=== PATIENT | male | born 1980 | race Caucasian/White ===

== ENCOUNTER 2016-07-13 17:03 | Emergency (ER) | payer BC ==
[~2016-07-13] VITALS: Ht 182.9 cm; Wt 83.9 kg
[~2016-07-13 17:03] MED LIST: OMEP20CA5; ONDA4TAB10 SL; OXYC-323 PO; TAMS0.4C97 PO
[2016-07-13] MEDS ORDERED: IV NORMAL SALINE 1000ML BAG 1,000 ML IV SCH (18:36)
[2016-07-13] MEDS ORDERED: ONDANSETRON PF 4 MG/2 ML VIAL. ONE (18:40)
[2016-07-13] MEDS ORDERED: HYDROMORPHONE 2 MG/ML VIAL. ONE (18:40)
[2016-07-13] MEDS ORDERED: ONDANSETRON PF 4 MG/2 ML VIAL. IV ONE (18:45)
[2016-07-13] MEDS ORDERED: HYDROMORPHONE 2 MG/ML VIAL. IV/SQ PRN (18:45)
[2016-07-13 18:50] LABS: BILIRUBIN,URINE NEGATIVE (NEG); GLUCOSE,URINE NEGATIVE (NEG); NITRITE,URINE NEGATIVE (NEG); PROTEIN,URINE NEGATIVE (NEG-TRACE); UROBILINOGEN,URINE 0.2 mg/dL (0.2 mg/dL)
[2016-07-13 18:52] LABS: BASO % 0 % (0-3); EOS % 4 % (0-3); HEMATOCRIT 48.3 % (39.0-53.0); HEMOGLOBIN 15.9 g/dL (13.0-17.5); LYMPH # 0.6 x10^3/uL (1.0-4.8); LYMPH % 6 % (24-48); MEAN CORPUSCULAR HEMOGLOBIN 29 pg (25-35); MEAN CORPUSCULAR HGB CONC 33 g/dL (31-37); MEAN CORPUSCULAR VOLUME 89 fL (79-100); MONO % 5 % (0-9); NEUT % 86 % (31-73); PLATELET COUNT 185 x10^3/uL (140-400); RED BLOOD COUNT 5.44 x10^6/uL (4.30-5.70); RED CELL DISTRIBUTION WIDTH 14.1 % (11.5-14.5)
[2016-07-13 19:00] LABS: CALCIUM 9.2 mg/dL (8.5-10.1); CREATININE 1.1 mg/dL (0.7-1.3); GFR 75.3; POTASSIUM 4.1 mmol/L (3.5-5.1)
[2016-07-13 19:06] LABS: ALBUMIN 4.1 g/dL (3.4-5.0); TOTAL BILIRUBIN 0.5 mg/dL (0.2-1.0); TOTAL PROTEIN 8.1 g/dL (6.4-8.2)
[2016-07-13 19:07] LABS: BACTERIA,URINE 0 /HPF (0-FEW); RBC,URINE 0 /HPF (0-2); WBC,URINE 0 /HPF (0-4)
--- NOTE | 2016-07-13 19:14 | RAD ---
PROCEDURE CT abdomen and pelvis without intravenous contrast. HISTORY Severe right flank pain beginning today. History of renal stones. TECHNIQUE Helical CT of the abdomen and pelvis was performed without intravenous or oral contrast. Exposure: One or more of the following individualized dose reduction techniques were utilized for this examination: 1. Automated exposure control. 2. Adjustment of the mA and/or kV according to patient size. 3. Use of iterative reconstruction technique. COMPARISON None available. FINDINGS Evaluation of solid organs is limited by lack of intravenous contrast. Evaluation of enteric structures may be limited by lack of oral contrast. Mild fatty liver disease is seen. Spleen, pancreas, gallbladder, and bilateral adrenal glands are unremarkable. No bowel obstruction or inflammation is seen. Appendix is without evidence of inflammation. Urinary bladder is unremarkable. No free air or free fluid is seen in the abdomen or pelvis. Bilateral ureters are free of stone or obstruction. Superior pole of the right kidney demonstrates 3 millimeter nonobstructive nephrolith. The left kidney demonstrates presence of 4 nonobstructive nephroliths ranging in size from 1 millimeter to 5 millimeters. IMPRESSION 1. No acute abnormality identified in the abdomen or pelvis. 2. Bilateral nonobstructive nephrolithiasis. Electronically signed by: Davi Harding MD (Jul 13, 2016 19:12:15)
[2016-07-13 19:47] LABS: % EOS 2 % (0-5)
[2016-07-13 19:48] LABS: PLT ESTIMATE ADEQUATE (ADEQUATE)
[2016-07-13 20:09] VITALS: BP 131/86
[2016-07-13] MEDS ORDERED: NAPR250T2 PO (20:15)
[2016-07-13] MEDS ORDERED: ONDA4TAB7 PO (20:15)
[2016-07-13] MEDS ORDERED: CYCL10TA2 PO (20:15)
--- NOTE | 2016-07-13 22:08 | ED.ADGEN ---
Past Medical History Past Medical History: GERD, Kidney Stone Additional Past Medical Histor: kidney stones Past Surgical History: Other Additional Past Surgical Histo: Hydrocele, left knee, belly button surgery Alcohol Use: Occasionally Drug Use: None Adult General Chief Complaint Chief Complaint: FLANK PAIN HPI HPI Patient is a 35 year old man, history of renal calculi with renal colic was previously required lithotripsy, GERD, who presents emergency Department with complaint of right flank pain that began yesterday, associated with nausea, vomiting and diarrhea. Patient states the symptoms she is experiencing currently are consistent with previous episodes of renal calculi. He states the pain has migrated somewhat lower down on his back but remains in the flank region. He denies any injuries, states he experienced subjective fevers at home , no chills. Several episodes of vomiting today, food and fluid, and several episodes of diarrhea, soft brown stool no blood. No sick contacts or exposures. Patient states that he has not experienced any dysuria, frequency, urgency or hematuria. He has not taken any medication prior to come to the ED. His urologist is Dr. Angel. Review of Systems Review of Systems Constitutional: Denies fever or chills. [] Eyes: Denies change in visual acuity. [] HENT: Denies nasal congestion or sore throat. [] Respiratory: Denies cough or shortness of breath. [] Cardiovascular: Denies chest pain or edema. [] GI: Right flank pain, nausea, vomiting, diarrhea, no bloody stools. : Denies dysuria. [] Musculoskeletal: Denies back pain or joint pain. [] Integument: Denies rash. [] Neurologic: Denies headache, focal weakness or sensory changes. [] Endocrine: Denies polyuria or polydipsia. [] Lymphatic: Denies swollen glands. [] Psychiatric: Denies depression or anxiety. [] Current Medications Current Medications Current Medications Medications (Trade) Dose Ordered Sig/Anay Start Time Stop Time Status Last Admin Dose Admin Hydromorphone HCl (Dilaudid) 2 mg STK-MED ONCE 07/13/16 18:40 07/13/16 18:41 DC Hydromorphone HCl 0.5 mg 0.5 mg PRN Q15MIN PRN 07/13/16 18:45 07/13/16 20:31 DC 07/13/16 18:44 0.5 MG Ondansetron HCl (Zofran) 4 mg STK-MED ONCE 07/13/16 18:40 07/13/16 18:41 DC Sodium Chloride (Iv Sodium Chloride 0.9% 1000ml Bag) 1,000 ml @ 1,000 mls/hr Q1H 07/13/16 18:36 07/13/16 19:35 DC 07/13/16 18:45 1,000 MLS/HR Allergies Allergies Allergies Coded Allergies Type Severity Reaction Last Updated Verified pseudoephedrine Allergy Unknown 04/10/13 Yes Physical Exam Physical Exam Constitutional: Well developed, well nourished, acute distress, secondary to pain, nausea, slightly diaphoretic. [] HENT: Normocephalic, atraumatic, bilateral external ears normal, oropharynx moist, no oral exudates, nose normal. [] Eyes: PERRLA, EOMI, conjunctiva normal, no discharge. [] Neck: Normal range of motion, no tenderness, supple, no stridor. [] Cardiovascular:Heart rate regular rhythm, no murmur, S1, S2, no rubs or gallops. Mildly tachycardic. [] Lungs & Thorax: Bilateral breath sounds clear to auscultation , no wheezing, rhonchi, rales. No chest tenderness or crepitus. [] Abdomen: Bowel sounds normal, soft, no tenderness, no rebound, rigidity, no guarding, no masses, no pulsatile masses. [] Skin: Warm, dry, no erythema, no rash. [] Back: Patient with right-sided CVA tenderness, no midline or paraspinal tenderness. Extremities: No tenderness, no cyanosis, no clubbing, ROM intact, no edema. [] Neurologic: Alert and oriented X 3, normal motor function, normal sensory function, no focal deficits noted. [] Psychologic: Affect normal, judgement normal, mood normal. [] Current Patient Data Vital Signs Vital Signs Date Time Temp Pulse Resp B/P Pulse Ox O2 Delivery O2 Flow Rate FiO2 07/13/16 20:09 80 18 131/86 97 Room Air 07/13/16 17:14 98.1 98.1 Lab Values Laboratory Tests Test 07/13/16 17:22 White Blood Count 10.0x10^3/uL (4.0-11.0) Red Blood Count 5.44x10^6/uL (4.30-5.70) Hemoglobin 15.9g/dL (13.0-17.5) Hematocrit 48.3% (39.0-53.0) Mean Corpuscular Volume 89fL (79-100) Mean Corpuscular Hemoglobin 29pg (25-35) Mean Corpuscular Hemoglobin Concent 33g/dL (31-37) Red Cell Distribution Width 14.1% (11.5-14.5) Platelet Count 185x10^3/uL (140-400) Neutrophils (%) (Auto) 86% (31-73) H Lymphocytes (%) (Auto) 6% (24-48) L Monocytes (%) (Auto) 5% (0-9) Eosinophils (%) (Auto) 4% (0-3) H Basophils (%) (Auto) 0% (0-3) Neutrophils # (Auto) 8.5x10^3uL (1.8-7.7) H Lymphocytes # (Auto) 0.6x10^3/uL (1.0-4.8) L Monocytes # (Auto) 0.5x10^3/uL (0.0-1.1) Eosinophils # (Auto) 0.4x10^3/uL (0.0-0.7) Basophils # (Auto) 0.0x10^3/uL (0.0-0.2) Segmented Neutrophils % 74% (35-66) H Band Neutrophils % 9% (0-9) Lymphocytes % 7% (24-48) L Atypical Lymphocytes % (Manual) 2% (0-0) H Monocytes % 6% (0-10) Eosinophils % 2% (0-5) Platelet Estimate Adequate (ADEQUATE) Urine Collection Type Unknown Urine Color Yellow Urine Clarity Clear Urine pH 5.0 Urine Specific [place] 1.020 Urine Protein Negativemg/dL (NEG-TRACE) Urine Glucose (UA) Negativemg/dL (NEG) Urine Ketones (Stick) Tracemg/dL (NEG) Urine Blood Negative (NEG) Urine Nitrite Negative (NEG) Urine Bilirubin Negative (NEG) Urine Urobilinogen Dipstick 0.2mg/dL (0.2 mg/dL) Urine Leukocyte Esterase Negative (NEG) Urine RBC 0/HPF (0-2) Urine WBC 0/HPF (0-4) Urine Bacteria 0/HPF (0-FEW) Urine Mucus Mod/LPF Sodium Level 142mmol/L (136-145) Potassium Level 4.1mmol/L (3.5-5.1) Chloride Level 104mmol/L (98-107) Carbon Dioxide Level 25mmol/L (21-32) Anion Gap 13 (6-14) Blood Urea Nitrogen 16mg/dL (8-26) Creatinine 1.1mg/dL (0.7-1.3) Estimated GFR (Cockcroft-Gault) 75.3 BUN/Creatinine Ratio 15 (6-20) Glucose Level 88mg/dL (70-99) Calcium Level 9.2mg/dL (8.5-10.1) Total Bilirubin 0.5mg/dL (0.2-1.0) Aspartate Amino Transferase (AST) 15U/L (15-37) Alanine Aminotransferase (ALT) 26U/L (16-63) Alkaline Phosphatase 99U/L (46-116) Total Protein 8.1g/dL (6.4-8.2) Albumin 4.1g/dL (3.4-5.0) Albumin/Globulin Ratio 1.0 (1.0-1.7) Laboratory Tests 07/13/16 17:22 Laboratory Tests 07/13/16 17:22 EKG EKG ECG: Rhythm strip: Sinus rhythm, heart rate 88 beats minute, no ectopy. As interpreted by me. Radiology/Procedures Radiology/Procedures [] [facility] [address] [place], [place] [id number] IMAGING REPORT Signed PATIENT: DAVI BRONSON ACCOUNT: [id number] : 1980 LOCATION: ER AGE: 35 SEX: M EXAM STATUS: REG ER ORD. PHYSICIAN: OZZY BORDEN DO REASON: R flank pain/n/v/hx of renal calculi PROCEDURE: ABDOMEN PELVIS WO CONTRAST PROCEDURE CT abdomen and pelvis without intravenous contrast. HISTORY Severe right flank pain beginning today. History of renal stones. TECHNIQUE Helical CT of the abdomen and pelvis was performed without intravenous or oral contrast. Exposure: One or more of the following individualized dose reduction techniques were utilized for this examination: 1. Automated exposure control. 2. Adjustment of the mA and/or kV according to patient size. 3. Use of iterative reconstruction technique. COMPARISON None available. FINDINGS Evaluation of solid organs is limited by lack of intravenous contrast. Evaluation of enteric structures may be limited by lack of oral contrast. Mild fatty liver disease is seen. Spleen, pancreas, gallbladder, and bilateral adrenal glands are unremarkable. No bowel obstruction or inflammation is seen. Appendix is without evidence of inflammation. Urinary bladder is unremarkable. No free air or free fluid is seen in the abdomen or pelvis. Bilateral ureters are free of stone or obstruction. Superior pole of the right kidney demonstrates 3 millimeter nonobstructive nephrolith. The left kidney demonstrates presence of 4 nonobstructive nephroliths ranging in size from 1 millimeter to 5 millimeters. IMPRESSION 1. No acute abnormality identified in the abdomen or pelvis. 2. Bilateral nonobstructive nephrolithiasis. Electronically signed by: Davi Miranda MD (Jul 13, 2016 19:12:15) DICTATED and SIGNED BY: DAVI MIRANDA MD DATE: 07/13/161911 CC: OZZY BORDEN DO; JR MICHEL MD ~ Course & Med Decision Making Course & Med Decision Making Pertinent Labs and Imaging studies reviewed. (See chart for details) Patient's history and examination concerning for recurrent renal calculi. Patient patient's report of a previously visualized stone 6 mm which she does not believe he has a past, and complicated course which he required previously to resolve his stones, CT of abdomen and pelvis obtained after discussion with patient at bedside regarding resources benefit of radiation and diagnostic evaluation with CT. Patient received IV fluids, antiemetics, pain medication in the ED with resolution of his vomiting. No further diarrhea. CT of abdomen and pelvis did not reveal any evidence of concerning findings, no hydroureter, no hydronephrosis, urinalysis was negative, laboratory studies revealed no leukocytosis, but some bands were identified, left shift. Lites are likely all within normal limits as was renal function. I did reevaluate the patient, who is now resting much more comfortably, reviewed the patient that he may be experiencing residual symptoms after passing a stone versus another etiology such as a viral illness. At this time the patient is tolerating by mouth fluids , and has no evidence of acutely concerning process on his CT or laboratory findings, patient is agreeable with plan to be discharged home, to use oral medications as needed, and to follow-up with Dr. Angel with whom he has an appointment tomorrow. We discussed concerning symptoms that would prompt return to the emergency department, patient and at bedside voiced understanding and agreement. Patient discharged home in stable condition with prescriptions for cycled endocrine, naproxen, and Zofran, with medication precautions and return instructions as stated. Dragon Disclaimer Dragon Disclaimer This electronic medical record was generated, in whole or in part, using a voice recognition dictation system. Departure Impression: Primary Impression: Flank pain Disposition: HOME, SELF-CARE Condition: IMPROVED Scripts Ondansetron Hcl (Zofran)4 Mg Tablet1 Tab PO PRN Q6-8HRS PRN NAUSEA #12 TAB Prov:OZZY BORDEN DO 07/13/16 Cyclobenzaprine Hcl 10 Mg [id number] Mg PO TID PRN PAIN #12 TAB Prov:OZZY BORDEN DO 07/13/16 Naproxen 250 Mg [id number] Mg PO BID PRN PAIN #10 Prov:OZZY BORDEN DO 07/13/16 OZZY BORDEN DO Jul 13, 2016 22:08
== END 2016-07-13 20:25 | disposition home or self-care (01) ==
LOC: ER 17:03
DX: R10.9 Unspecified abdominal pain (principal); K21.9 Gastro-esophageal reflux disease without esophagitis; Z88.8 Allergy status to other drugs, medicaments and biological substances
CPT/HCPCS: 36415; 74176; 80053; 81001; 85007; 85027; 96361; 96374; 96375; 99285; J1170; J2405; J7030

== ENCOUNTER → 2016-08-03 | Outpatient (CLI) | payer BC ==
[2016-07-13 20:09] VITALS: BP 131/86
[~2016-08-03] MED LIST changes: +CYCL10TA2 PO; +NAPR250T2 PO; +ONDA4TAB7 PO
--- NOTE | 2016-08-04 08:50 | RAD ---
Abdomen radiograph History: Renal stones. Comparison: 10/20/2015. Findings: AP view of the abdomen. Superior pole of right kidney was not included on the examination. The inferior pole of left kidney demonstrates presence of 2 calcifications measuring 4 and 2 mm, compatible with nephrolithiasis. This can be seen on previous study. There may be a 3 mm calcification involving the interpolar region of the right kidney. No convincing calcification is seen along the expected course of either ureter. There is a small calcification involving left hemipelvis which is unchanged involves the prostate. Impression: Bilateral nephrolithiasis.
== END | disposition home or self-care (01) ==
LOC: RAD 14:41
PROVIDERS: ATTEND Nurse Practitioner Occupational Health
DX: N20.0 Calculus of kidney (principal)
CPT/HCPCS: 74000

== ENCOUNTER → 2016-08-04 | Outpatient (CLI) | payer BC ==
[2016-07-13 20:09] VITALS: BP 131/86
== END | disposition home or self-care (01) ==
LOC: LAB 14:35
PROVIDERS: ATTEND Nurse Practitioner Occupational Health
DX: Z12.5 Encounter for screening for malignant neoplasm of prostate (principal); N40.0 Benign prostatic hyperplasia without lower urinary tract symptoms; N20.0 Calculus of kidney
CPT/HCPCS: 36415; G0103

== ENCOUNTER → 2016-09-28 | Outpatient (CLI) | payer BC ==
--- NOTE | 2016-09-28 15:44 | RAD ---
Abdominal ultrasound - limited to the kidneys Indication: BPH, kidney stones, lower urinary tract symptoms. Comparison: CT abdomen pelvis 07/13/2016. Procedure: Transabdominal ultrasound images are obtained of the kidneys and bladder. Findings: Right kidney measures 10.9 cm in length. Parenchymal echogenicity of the right kidney appears appropriate. No hydronephrosis is seen. No convincing right nephrolith is seen. Left kidney measures 10.9 cm in length. Parenchymal echogenicity of the left kidney appears appropriate. No hydronephrosis is seen. There may be small nonobstructive nephroliths involving the inferior left kidney. Urinary bladder has unremarkable appearance. Impression: 1. No evidence of renal obstruction. 2. There may be nonobstructive left nephroliths.
== END | disposition home or self-care (01) ==
LOC: US 14:10
PROVIDERS: ATTEND Nurse Practitioner Occupational Health
DX: N20.0 Calculus of kidney (principal); N40.1 Benign prostatic hyperplasia with lower urinary tract symptoms
CPT/HCPCS: 76770

== ENCOUNTER 2018-02-27 07:38 | Emergency (ER) | payer BC ==
[~2018-02-27] VITALS: Ht 182.9 cm; Wt 90.7 kg
[~2018-02-27 07:38] MED LIST changes: -NAPR250T2 PO; +NAPR250T6 PO
[2018-02-27 07:47] VITALS: BP 151/108
--- NOTE | 2018-02-27 07:56 | PHYS DOC ---
Past Medical History Past Medical History: GERD, Kidney Stone Additional Past Medical Histor: kidney stones Past Surgical History: Other Additional Past Surgical Histo: Hydrocele, left knee, belly button surgery Alcohol Use: Occasionally Drug Use: None Adult General Chief Complaint Chief Complaint: CHEST PAIN [facility] Patient is a 37 year old female who presents with chest pain right side of the chest hurts to cough hurts to move he said when he tried to put the leash on his dog this morning when he bent over and move the shoulder around her his pectoralis area and radiated to his scapula. Currently at rest the pain is minimal or absent. It is not really worse when he walks just when he moves in a certain position. It is sharp no fever no history of blood clot no hemoptysis no leg swelling Review of Systems Review of Systems Constitutional: Denies fever or chills [] Eyes: Denies change in visual acuity, redness, or eye pain [] HENT: Denies nasal congestion or sore throat [] Respiratory: Denies r shortness of breath [] Cardiovascular: No additional information not addressed in HPI [] GI: Denies abdominal pain, nausea, vomiting, bloody stools or diarrhea [] All other systems were reviewed and found to be within normal limits, except as documented in this note. Allergies Allergies Allergies Coded Allergies Type Severity Reaction Last Updated Verified pseudoephedrine Allergy Unknown 04/10/13 Yes Physical Exam Physical Exam Constitutional: Well developed, well nourished, no acute distress, non-toxic appearance. [] HENT: Normocephalic, atraumatic, bilateral external ears normal, oropharynx moist, no oral exudates, nose normal. [] Eyes: PERRLA, EOMI, conjunctiva normal, no discharge. [] Neck: Normal range of motion, no tenderness, supple, no stridor. [] Cardiovascular:Heart rate regular rhythm, no murmur [] Lungs & Thorax: Bilateral breath sounds clear to auscultation []there is reproducible chest wall tenderness on the right Abdomen: Bowel sounds normal, soft, no tenderness, no masses, no pulsatile masses. [] Skin: Warm, dry, no erythema, no rash. [] Back: No tenderness, no CVA tenderness. [] Extremities: No tenderness, no cyanosis, no clubbing, ROM intact, no edema. [] Neurologic: Alert and oriented X 3, normal motor function, normal sensory function, no focal deficits noted. [] Psychologic: Affect normal, judgement normal, mood normal. [] Current Patient Data Vital Signs Vital Signs Date Time Temp Pulse Resp B/P (MAP) Pulse Ox O2 Delivery O2 Flow Rate FiO2 02/27/18 07:47 97.9 72 18 151/108 (122) 93 Room Air 97.9 Lab Values Laboratory Tests Test 02/27/18 07:59 White Blood Count 9.0 x10^3/uL (4.0-11.0) Red Blood Count 5.14 x10^6/uL (4.30-5.70) Hemoglobin 15.5 g/dL (13.0-17.5) Hematocrit 44.7 % (39.0-53.0) Mean Corpuscular Volume 87 fL (79-100) Mean Corpuscular Hemoglobin 30 pg (25-35) Mean Corpuscular Hemoglobin Concent 35 g/dL (31-37) Red Cell Distribution Width 13.8 % (11.5-14.5) Platelet Count 199 x10^3/uL (140-400) Neutrophils (%) (Auto) 63 % (31-73) Lymphocytes (%) (Auto) 20 % (24-48) L Monocytes (%) (Auto) 7 % (0-9) Eosinophils (%) (Auto) 8 % (0-3) H Basophils (%) (Auto) 1 % (0-3) Neutrophils # (Auto) 5.7 x10^3uL (1.8-7.7) Lymphocytes # (Auto) 1.8 x10^3/uL (1.0-4.8) Monocytes # (Auto) 0.7 x10^3/uL (0.0-1.1) Eosinophils # (Auto) 0.7 x10^3/uL (0.0-0.7) Basophils # (Auto) 0.1 x10^3/uL (0.0-0.2) Sodium Level 141 mmol/L (136-145) Potassium Level 4.2 mmol/L (3.5-5.1) Chloride Level 106 mmol/L (98-107) Carbon Dioxide Level 22 mmol/L (21-32) Anion Gap 13 (6-14) Blood Urea Nitrogen 10 mg/dL (8-26) Creatinine 1.1 mg/dL (0.7-1.3) Estimated GFR (Cockcroft-Gault) 74.5 BUN/Creatinine Ratio 9 (6-20) Glucose Level 102 mg/dL (70-99) H Calcium Level 9.0 mg/dL (8.5-10.1) Total Bilirubin 0.3 mg/dL (0.2-1.0) Aspartate Amino Transferase (AST) 15 U/L (15-37) Alanine Aminotransferase (ALT) 25 U/L (16-63) Alkaline Phosphatase 104 U/L (46-116) Troponin I Quantitative < 0.017 ng/mL (0.000-0.055) Total Protein 7.5 g/dL (6.4-8.2) Albumin 3.8 g/dL (3.4-5.0) Albumin/Globulin Ratio 1.0 (1.0-1.7) Laboratory Tests 02/27/18 07:59 Laboratory Tests 02/27/18 07:59 EKG EKG []EKG shows normal sinus rhythm rate of 67 no acute ischemic changes noted this is a normal-appearing EKG intervals are normal interpreted by me the time of encounter Radiology/Procedures Radiology/Procedures [] Impressions: CXR NEG Course & Med Decision Making Course & Med Decision Making Pertinent Labs and Imaging studies reviewed. (See chart for details) []perc score is negative. heart h 0 e 0 a 0 r 1 (possibly) t 0. After 5 hours of sharp reproducible chest wall pain no more EKG negative troponin very low suspicion for acute coronary syndrome I think the patient can be managed safely as an outpatient recommended follow-up with primary care doctor should symptoms persist also recommended follow-up in 1 month to check blood pressure as well. The story does not sound like a dissection at all. REASSURANCE PROVIDED, RETURN PRECAUTIONS DISCUSSED IN EXPLICIT DETAIL. Dragon Disclaimer Dragon Disclaimer This electronic medical record was generated, in whole or in part, using a voice recognition dictation system. Departure Departure Impression: Primary Impression: Chest pain Disposition: HOME, SELF-CARE Condition: STABLE Referrals: JR MICHEL MD (PCP) JOHANA CALDWELL MD Feb 27, 2018 07:56
[2018-02-27 08:25] LABS: BASO # 0.1 x10^3/uL (0.0-0.2); BASO % 1 % (0-3); EOS # 0.7 x10^3/uL (0.0-0.7); EOS % 8 % (0-3); HEMATOCRIT 44.7 % (39.0-53.0); HEMOGLOBIN 15.5 g/dL (13.0-17.5); LYMPH # 1.8 x10^3/uL (1.0-4.8); LYMPH % 20 % (24-48); MEAN CORPUSCULAR HEMOGLOBIN 30 pg (25-35); MEAN CORPUSCULAR HGB CONC 35 g/dL (31-37); MEAN CORPUSCULAR VOLUME 87 fL (79-100); MONO # 0.7 x10^3/uL (0.0-1.1); MONO % 7 % (0-9); NEUT # 5.7 x10^3uL (1.8-7.7); NEUT % 63 % (31-73); PLATELET COUNT 199 x10^3/uL (140-400); RED BLOOD COUNT 5.14 x10^6/uL (4.30-5.70); RED CELL DISTRIBUTION WIDTH 13.8 % (11.5-14.5)
[2018-02-27 08:30] LABS: CREATININE 1.1 mg/dL (0.7-1.3); GFR 74.5; POTASSIUM 4.2 mmol/L (3.5-5.1)
[2018-02-27 08:36] LABS: ALBUMIN 3.8 g/dL (3.4-5.0); TOTAL BILIRUBIN 0.3 mg/dL (0.2-1.0); TOTAL PROTEIN 7.5 g/dL (6.4-8.2)
--- NOTE | 2018-02-27 08:37 | RAD ---
Exam: AP portable chest History: Right chest pain. Comparison: April 10, 2013. Findings: The heart and mediastinal structures are within normal limits for size. Lungs are without infiltrate. No pleural effusion or pneumothorax is identified. Impression: 1. No acute cardiopulmonary process. Electronically signed by: Davi Harding MD (02/27/2018 8:34 AM) [facility]
--- NOTE | 2018-02-28 09:00 | EKG ---
[facility] [address] [place] [address] Test Date: 2018-02-27 Test Time: 07:42:22 Pat Name: PHILLIP BRONSON Department: Room: Gender: M Sander Machine: : 1980 Requested By: JOHANA CALDWELL Order Number: [id number] Reading MD: Gen Gale MD Measurements Intervals [place] Rate: 67 P: 12 MD: 152 QRS: -17 QRSD: 94 T: 29 QT: 364 QTc: 387 Interpretive Statements SINUS RHYTHM Electronically Signed On 03-02-2018 11:46:33 CDT by Gen Gale MD
== END 2018-02-27 09:15 | disposition home or self-care (01) ==
LOC: ER 07:38
DX: R07.89 Other chest pain (principal); R05 Cough; K21.9 Gastro-esophageal reflux disease without esophagitis; Z87.442 Personal history of urinary calculi; Z88.8 Allergy status to other drugs, medicaments and biological substances
CPT/HCPCS: 36415; 71045; 80053; 84484; 85025; 93005; 99285-25

== ENCOUNTER 2018-04-02 18:57 | Inpatient (IN) | payer BC ==
[~2018-04-02] VITALS: Ht 182.9 cm; Wt 90.7 kg
[~2018-04-02 18:57] MED LIST changes: -OXYC-323 PO; +OXYC1TAB15 PO
[2018-04-02] MEDS ORDERED: fentaNYL PF VIAL 100 MCG/2 ML VIAL IV ONE ×2 (19:15→20:15)
[2018-04-02] MEDS ORDERED: IV NORMAL SALINE 1000ML BAG 1,000 ML IV ONE (19:15)
[2018-04-02] MEDS ORDERED: ONDANSETRON PF 4 MG/2 ML VIAL. IV ONE (19:15)
[2018-04-02 19:18] LABS: BILIRUBIN,URINE NEGATIVE (NEG); CLARITY,URINE CLOUDY; COLOR,URINE RED; NITRITE,URINE NEGATIVE (NEG); PH,URINE 5.5; PROTEIN,URINE 100 mg/dL (NEG-TRACE); UROBILINOGEN,URINE 0.2 mg/dL (0.2 mg/dL)
[2018-04-02 19:19] LABS: BASO # 0.1 x10^3/uL (0.0-0.2); BASO % 1 % (0-3); EOS # 0.7 x10^3/uL (0.0-0.7); EOS % 8 % (0-3); HEMATOCRIT 44.3 % (39.0-53.0); HEMOGLOBIN 15.3 g/dL (13.0-17.5); LYMPH % 21 % (24-48); MEAN CORPUSCULAR HEMOGLOBIN 30 pg (25-35); MEAN CORPUSCULAR HGB CONC 35 g/dL (31-37); MEAN CORPUSCULAR VOLUME 87 fL (79-100); MONO # 0.9 x10^3/uL (0.0-1.1); MONO % 10 % (0-9); NEUT # 5.8 x10^3uL (1.8-7.7); NEUT % 60 % (31-73); PLATELET COUNT 246 x10^3/uL (140-400); RED BLOOD COUNT 5.08 x10^6/uL (4.30-5.70); RED CELL DISTRIBUTION WIDTH 13.9 % (11.5-14.5); WHITE BLOOD COUNT 9.5 x10^3/uL (4.0-11.0)
[2018-04-02 19:25] LABS: CALCIUM 9.2 mg/dL (8.5-10.1); CREATININE 1.6 mg/dL (0.7-1.3); GFR 48.4; POTASSIUM 4.1 mmol/L (3.5-5.1)
[2018-04-02 19:27] LABS: AMORPHOUS SEDIMENT,UR PRESENT /HPF; BACTERIA,URINE 0 /HPF (0-FEW); RBC,URINE TNTC /HPF (0-2)
[2018-04-02 19:31] LABS: ALBUMIN 3.7 g/dL (3.4-5.0); ALBUMIN/GLOBULIN RATIO 0.9 (1.0-1.7); TOTAL BILIRUBIN 0.1 mg/dL (0.2-1.0); TOTAL PROTEIN 7.9 g/dL (6.4-8.2)
--- NOTE | 2018-04-02 19:44 | RAD ---
CT abdomen and pelvis without contrast 04/02/2018. Reason for exam: Left flank pain. History of kidney stones. Helical noncontrast images were obtained through the abdomen and pelvis. Exposure: One or more of the following individualized dose reduction techniques were utilized for this examination: 1. Automated exposure control 2. Adjustment of the mA and/or kV according to patient size 3. Use of iterative reconstruction technique. Comparison is made with a prior study of 07/13/2016. FINDINGS: The lung bases are clear. The liver and spleen are homogeneous in density and normal in configuration. The kidneys show no apparent mass. Small calculi are seen on each side. There is mild left-sided hydronephrosis and hydroureter. This is secondary to stones in both the proximal and distal ureter. The proximal ureteral stone measures about 6 mm transversely in the distal ureteral stone about 5 mm. No adrenal abnormality is seen. The pancreas appears normal. No retroperitoneal or mesenteric adenopathy is seen. There is no apparent abdominal mass or inflammatory process. Images through the pelvis show no apparent abnormality of the bladder. The bladder was decompressed at the time of scanning. No pelvic or inguinal adenopathy is seen. There is no apparent pelvic mass or inflammatory process. IMPRESSION: Proximal and distal left ureteral stones apparently causing mild obstruction. Electronically signed by: Ric Crawford Jr., MD (04/02/2018 7:40 PM) [facility]
--- NOTE | 2018-04-02 19:47 | PHYS DOC ---
Past Medical History Past Medical History: GERD, Kidney Stone Additional Past Medical Histor: kidney stones Past Surgical History: Other Additional Past Surgical Histo: Hydrocele, left knee, belly button surgery Alcohol Use: Occasionally Drug Use: None Adult General Chief Complaint Chief Complaint: FLANK PAIN HPI HPI Patient is a 37 year old male who presents with complaints of left flank pain that is been ongoing for approximately 2 weeks. The patient states that he has had blood in his urine as well. He denies fever or chills. He did have nausea this morning. He does have an extensive history of kidney stones and renal calculi. Review of Systems Review of Systems Constitutional: Denies fever or chills [] Eyes: Denies change in visual acuity, redness, or eye pain [] HENT: Denies nasal congestion or sore throat [] Respiratory: Denies cough or shortness of breath [] Cardiovascular: No additional information not addressed in HPI [] GI: Denies abdominal pain, nausea, vomiting, bloody stools or diarrhea [] : See history of present illness Musculoskeletal: See history of present illness Integument: Denies rash or skin lesions [] Neurologic: Denies headache, focal weakness or sensory changes [] Endocrine: Denies polyuria or polydipsia [] All other systems were reviewed and found to be within normal limits, except as documented in this note. Current Medications Current Medications Current Medications Medications (Trade) Dose Ordered Sig/Anya Start Time Stop Time Status Last Admin Dose Admin Acetaminophen (Tylenol) 650 mg PRN Q4HRS PRN 04/02/18 20:00 04/03/18 19:59 UNV Fentanyl Citrate (Fentanyl 2ml Vial) 50 mcg 1X ONCE 04/02/18 20:15 04/02/18 20:16 UNV Levofloxacin/ Dextrose (Levaquin Per Pharmacy) 1 each PRN DAILY PRN 04/02/18 20:00 UNV Ondansetron HCl (Zofran) 4 mg PRN Q8HRS PRN 04/02/18 20:00 04/03/18 19:59 UNV Sodium Chloride 1,000 ml @ 125 mls/hr Q8H 04/02/18 19:58 04/03/18 19:57 UNV Allergies Allergies Allergies Coded Allergies Type Severity Reaction Last Updated Verified pseudoephedrine Allergy Unknown 04/10/13 Yes Physical Exam Physical Exam Constitutional: Well developed, well nourished, no acute distress, non-toxic appearance. [] Cardiovascular:Heart rate regular rhythm, no murmur [] Lungs & Thorax: Bilateral breath sounds clear to auscultation [] Abdomen: Bowel sounds normal, soft, no tenderness, no masses, no pulsatile masses. [] Skin: Warm, dry, no erythema, no rash. [] Back: No tenderness, left CVA tenderness. [] Extremities: No tenderness, no cyanosis, no clubbing, ROM intact, no edema. [] Neurologic: Alert and oriented X 3, normal motor function, normal sensory function, no focal deficits noted. [] Psychologic: Affect normal, judgement normal, mood normal. [] Current Patient Data Vital Signs Vital Signs Date Time Temp Pulse Resp B/P (MAP) Pulse Ox O2 Delivery O2 Flow Rate FiO2 04/02/18 19:58 60 20 166/104 (124) 98 Room Air 04/02/18 18:59 97.4 97.4 Lab Values Laboratory Tests Test 04/02/18 19:00 04/02/18 19:05 Urine Collection Type Unknown Urine Color Red Urine Clarity Cloudy Urine pH 5.5 Urine Specific [place] 1.025 Urine Protein 100 mg/dL (NEG-TRACE) Urine Glucose (UA) Negative mg/dL (NEG) Urine Ketones (Stick) Trace mg/dL (NEG) Urine Blood Large (NEG) Urine Nitrite Negative (NEG) Urine Bilirubin Negative (NEG) Urine Urobilinogen Dipstick 0.2 mg/dL (0.2 mg/dL) Urine Leukocyte Esterase Small (NEG) Urine RBC Tntc /HPF (0-2) Urine WBC 1-4 /HPF (0-4) Urine Squamous Epithelial Cells None /LPF Urine Amorphous Sediment Present /HPF Urine Bacteria 0 /HPF (0-FEW) Urine Mucus Mod /LPF White Blood Count 9.5 x10^3/uL (4.0-11.0) Red Blood Count 5.08 x10^6/uL (4.30-5.70) Hemoglobin 15.3 g/dL (13.0-17.5) Hematocrit 44.3 % (39.0-53.0) Mean Corpuscular Volume 87 fL (79-100) Mean Corpuscular Hemoglobin 30 pg (25-35) Mean Corpuscular Hemoglobin Concent 35 g/dL (31-37) Red Cell Distribution Width 13.9 % (11.5-14.5) Platelet Count 246 x10^3/uL (140-400) Neutrophils (%) (Auto) 60 % (31-73) Lymphocytes (%) (Auto) 21 % (24-48) L Monocytes (%) (Auto) 10 % (0-9) H Eosinophils (%) (Auto) 8 % (0-3) H Basophils (%) (Auto) 1 % (0-3) Neutrophils # (Auto) 5.8 x10^3uL (1.8-7.7) Lymphocytes # (Auto) 2.0 x10^3/uL (1.0-4.8) Monocytes # (Auto) 0.9 x10^3/uL (0.0-1.1) Eosinophils # (Auto) 0.7 x10^3/uL (0.0-0.7) Basophils # (Auto) 0.1 x10^3/uL (0.0-0.2) Sodium Level 139 mmol/L (136-145) Potassium Level 4.1 mmol/L (3.5-5.1) Chloride Level 103 mmol/L (98-107) Carbon Dioxide Level 25 mmol/L (21-32) Anion Gap 11 (6-14) Blood Urea Nitrogen 16 mg/dL (8-26) Creatinine 1.6 mg/dL (0.7-1.3) H Estimated GFR (Cockcroft-Gault) 48.4 BUN/Creatinine Ratio 10 (6-20) Glucose Level 121 mg/dL (70-99) H Calcium Level 9.2 mg/dL (8.5-10.1) Total Bilirubin 0.1 mg/dL (0.2-1.0) L Aspartate Amino Transferase (AST) 13 U/L (15-37) L Alanine Aminotransferase (ALT) 26 U/L (16-63) Alkaline Phosphatase 101 U/L (46-116) Total Protein 7.9 g/dL (6.4-8.2) Albumin 3.7 g/dL (3.4-5.0) Albumin/Globulin Ratio 0.9 (1.0-1.7) L Laboratory Tests 04/02/18 19:05 Laboratory Tests 04/02/18 19:05 EKG EKG [] Radiology/Procedures Radiology/Procedures [] PATIENT: PHILLIP BRONSON ACCOUNT: [id number] : 1980 LOCATION: ER AGE: 37 SEX: M EXAM STATUS: REG ER ORD. PHYSICIAN: RAÚL LOPEZ APRN REASON: left flank pain, hx of kidney stones PROCEDURE: CT ABDOMEN PELVIS WO CONTRAST CT abdomen and pelvis without contrast 04/02/2018. Reason for exam: Left flank pain. History of kidney stones. Helical noncontrast images were obtained through the abdomen and pelvis. Exposure: One or more of the following individualized dose reduction techniques were utilized for this examination: 1. Automated exposure control 2. Adjustment of the mA and/or kV according to patient size 3. Use of iterative reconstruction technique. Comparison is made with a prior study of 07/13/2016. FINDINGS: The lung bases are clear. The liver and spleen are homogeneous in density and normal in configuration. The kidneys show no apparent mass. Small calculi are seen on each side. There is mild left-sided hydronephrosis and hydroureter. This is secondary to stones in both the proximal and distal ureter. The proximal ureteral stone measures about 6 mm transversely in the distal ureteral stone about 5 mm. No adrenal abnormality is seen. The pancreas appears normal. No retroperitoneal or mesenteric adenopathy is seen. There is no apparent abdominal mass or inflammatory process. Images through the pelvis show no apparent abnormality of the bladder. The bladder was decompressed at the time of scanning. No pelvic or inguinal adenopathy is seen. There is no apparent pelvic mass or inflammatory process. IMPRESSION: Proximal and distal left ureteral stones apparently causing mild obstruction. Electronically signed by: Joe Crawford Jr., MD (04/02/2018 7:40 PM) [facility] DICTATED and SIGNED BY: JOE CRAWFORD Jr, MD DATE: 04/02/181935 Course & Med Decision Making Course & Med Decision Making Pertinent Labs and Imaging studies reviewed. (See chart for details) []CT scan shows to obstructing stones. He does have a slightly elevated creatinine as well as hydronephrosis and hydroureter. He also has leukocytes in his urine. He will be admitted for further evaluation and treatment to Dr. Reeves's service. Urology has been consulted. The patient is being placed on antibiotics for his urinary tract infection. Dragon Disclaimer Dragon Disclaimer This electronic medical record was generated, in whole or in part, using a voice recognition dictation system. Departure Departure Impression: Primary Impression: Hydronephrosis Additional Impressions: Ureteral stone UTI (urinary tract infection) Hydroureter Disposition: ADMITTED INPATIENT Admitting Physician: Johanna Reeves Condition: GOOD Referrals: JOHANNA REEVES MD (PCP) Problem Qualifiers RAÚL LOPEZ FORESTRY AID TECHNICIAN Apr 02, 2018 19:47
[2018-04-02] MEDS ORDERED: fentaNYL PF VIAL 100 MCG/2 ML VIAL IV PRN (20:00)
[2018-04-02] MEDS ORDERED: ACETAMINOPHEN 325 MG TABLET. PO PRN (20:00)
[2018-04-02] MEDS ORDERED: levOFLOXacin PER PHARMACY. MC PRN (20:00)
[2018-04-02] MEDS ORDERED: ONDANSETRON PF 4 MG/2 ML VIAL. IV PRN (20:00)
[2018-04-02] MEDS ORDERED: oxyCODONE/APAP 10/325 1 TAB TABLET PO ONE (20:30)
[2018-04-02 20:45] VITALS: BP 162/107
[2018-04-02 23:00] VITALS: BP 162/88
[2018-04-03 03:00] VITALS: BP 140/89
[2018-04-03] MEDS: IV NORMAL SALINE 1000ML BAG 1,000 ML IV SCH ×3 (03:58→14:34)
[2018-04-03] MEDS ORDERED: PANT20TA2 PO (05:01)
[2018-04-03 07:00] VITALS: BP 143/92
[2018-04-03 07:21] LABS: BASO # 0.1 x10^3/uL (0.0-0.2); BASO % 1 % (0-3); EOS # 0.6 x10^3/uL (0.0-0.7); EOS % 8 % (0-3); HEMATOCRIT 41.8 % (39.0-53.0); HEMOGLOBIN 14.4 g/dL (13.0-17.5); LYMPH # 1.6 x10^3/uL (1.0-4.8); LYMPH % 21 % (24-48); MEAN CORPUSCULAR HEMOGLOBIN 30 pg (25-35); MEAN CORPUSCULAR HGB CONC 34 g/dL (31-37); MEAN CORPUSCULAR VOLUME 87 fL (79-100); MONO # 0.7 x10^3/uL (0.0-1.1); MONO % 9 % (0-9); NEUT # 4.6 x10^3uL (1.8-7.7); NEUT % 61 % (31-73); PLATELET COUNT 221 x10^3/uL (140-400); RED BLOOD COUNT 4.83 x10^6/uL (4.30-5.70); RED CELL DISTRIBUTION WIDTH 14.2 % (11.5-14.5); WHITE BLOOD COUNT 7.6 x10^3/uL (4.0-11.0)
[2018-04-03 07:37] LABS: CALCIUM 8.7 mg/dL (8.5-10.1); CREATININE 1.1 mg/dL (0.7-1.3); GFR 74.5; POTASSIUM 3.6 mmol/L (3.5-5.1)
--- NOTE | 2018-04-03 08:02 | PDOC ---
PROGRESS NOTES Subjective Subjective Patient reports pain well controlled with prn Fentanyl. Denies nausea. Objective Objective Vital Signs Date Time Temp Pulse Resp B/P (MAP) Pulse Ox O2 Delivery O2 Flow Rate FiO2 04/03/18 03:00 97.7 71 18 140/89 (106) 97 Room Air 97.7 Intake and Output 04/03/18 07:00 Intake Total 350 ml Output Total 500 ml Balance -150 ml Intake Oral 350 ml Output Urine Total 500 ml Physical Exam Abdomen: Normal bowel sounds, Soft, No tenderness Heart: Regular rate Extremities: No edema General: Alert, Oriented X3, No acute distress Lungs: Clear to auscultation MUSCULOSKELETAL: Other (mild TTP L CVA) Assessment Assessment Problems Medical Problems: (1) Hydroureter Status: Acute Plan Plan of Care 1. Renal stones with hydronephrosis - patient does have hx of stones. Lab improved with IVF. Continue Levaquin, urine culture pending. Await Urology consult, anticipate cystoscopy. Patient comfortable with present medication as needed. Continue NPO for now. 2. Elevated BP - patient does not have hx of HTN and had normal BP on recent OV. Suspect due to discomfort. Continue to follow. Comment Review of Relevant I have reviewed the following items ben (where applicable) has been applied. Labs Laboratory Tests Test 04/02/18 19:00 04/02/18 19:05 04/03/18 06:20 Urine Collection Type Unknown Urine Color Red Urine Clarity Cloudy Urine pH 5.5 Urine Specific [place] 1.025 Urine Protein 100 mg/dL (NEG-TRACE) Urine Glucose (UA) Negative mg/dL (NEG) Urine Ketones (Stick) Trace mg/dL (NEG) Urine Blood Large (NEG) Urine Nitrite Negative (NEG) Urine Bilirubin Negative (NEG) Urine Urobilinogen Dipstick 0.2 mg/dL (0.2 mg/dL) Urine Leukocyte Esterase Small (NEG) Urine RBC Tntc /HPF (0-2) Urine WBC 1-4 /HPF (0-4) Urine Squamous Epithelial Cells None /LPF Urine Amorphous Sediment Present /HPF Urine Bacteria 0 /HPF (0-FEW) Urine Mucus Mod /LPF White Blood Count 9.5 x10^3/uL (4.0-11.0) 7.6 x10^3/uL (4.0-11.0) Red Blood Count 5.08 x10^6/uL (4.30-5.70) 4.83 x10^6/uL (4.30-5.70) Hemoglobin 15.3 g/dL (13.0-17.5) 14.4 g/dL (13.0-17.5) Hematocrit 44.3 % (39.0-53.0) 41.8 % (39.0-53.0) Mean Corpuscular Volume 87 fL (79-100) 87 fL (79-100) Mean Corpuscular Hemoglobin 30 pg (25-35) 30 pg (25-35) Mean Corpuscular Hemoglobin Concent 35 g/dL (31-37) 34 g/dL (31-37) Red Cell Distribution Width 13.9 % (11.5-14.5) 14.2 % (11.5-14.5) Platelet Count 246 x10^3/uL (140-400) 221 x10^3/uL (140-400) Neutrophils (%) (Auto) 60 % (31-73) 61 % (31-73) Lymphocytes (%) (Auto) 21 % (24-48) 21 % (24-48) Monocytes (%) (Auto) 10 % (0-9) 9 % (0-9) Eosinophils (%) (Auto) 8 % (0-3) 8 % (0-3) Basophils (%) (Auto) 1 % (0-3) 1 % (0-3) Neutrophils # (Auto) 5.8 x10^3uL (1.8-7.7) 4.6 x10^3uL (1.8-7.7) Lymphocytes # (Auto) 2.0 x10^3/uL (1.0-4.8) 1.6 x10^3/uL (1.0-4.8) Monocytes # (Auto) 0.9 x10^3/uL (0.0-1.1) 0.7 x10^3/uL (0.0-1.1) Eosinophils # (Auto) 0.7 x10^3/uL (0.0-0.7) 0.6 x10^3/uL (0.0-0.7) Basophils # (Auto) 0.1 x10^3/uL (0.0-0.2) 0.1 x10^3/uL (0.0-0.2) Sodium Level 139 mmol/L (136-145) 141 mmol/L (136-145) Potassium Level 4.1 mmol/L (3.5-5.1) 3.6 mmol/L (3.5-5.1) Chloride Level 103 mmol/L (98-107) 107 mmol/L (98-107) Carbon Dioxide Level 25 mmol/L (21-32) 21 mmol/L (21-32) Anion Gap 11 (6-14) 13 (6-14) Blood Urea Nitrogen 16 mg/dL (8-26) 11 mg/dL (8-26) Creatinine 1.6 mg/dL (0.7-1.3) 1.1 mg/dL (0.7-1.3) Estimated GFR (Cockcroft-Gault) 48.4 74.5 BUN/Creatinine Ratio 10 (6-20) Glucose Level 121 mg/dL (70-99) 93 mg/dL (70-99) Calcium Level 9.2 mg/dL (8.5-10.1) 8.7 mg/dL (8.5-10.1) Total Bilirubin 0.1 mg/dL (0.2-1.0) Aspartate Amino Transf (AST/SGOT) 13 U/L (15-37) Alanine Aminotransferase (ALT/SGPT) 26 U/L (16-63) Alkaline Phosphatase 101 U/L (46-116) Total Protein 7.9 g/dL (6.4-8.2) Albumin 3.7 g/dL (3.4-5.0) Albumin/Globulin Ratio 0.9 (1.0-1.7) Laboratory Tests Test 04/02/18 19:00 04/02/18 19:05 04/03/18 06:20 Urine Collection Type Unknown Urine Color Red Urine Clarity Cloudy Urine pH 5.5 Urine Specific [place] 1.025 Urine Protein 100 mg/dL (NEG-TRACE) Urine Glucose (UA) Negative mg/dL (NEG) Urine Ketones (Stick) Trace mg/dL (NEG) Urine Blood Large (NEG) Urine Nitrite Negative (NEG) Urine Bilirubin Negative (NEG) Urine Urobilinogen Dipstick 0.2 mg/dL (0.2 mg/dL) Urine Leukocyte Esterase Small (NEG) Urine RBC Tntc /HPF (0-2) Urine WBC 1-4 /HPF (0-4) Urine Squamous Epithelial Cells None /LPF Urine Amorphous Sediment Present /HPF Urine Bacteria 0 /HPF (0-FEW) Urine Mucus Mod /LPF White Blood Count 9.5 x10^3/uL (4.0-11.0) 7.6 x10^3/uL (4.0-11.0) Red Blood Count 5.08 x10^6/uL (4.30-5.70) 4.83 x10^6/uL (4.30-5.70) Hemoglobin 15.3 g/dL (13.0-17.5) 14.4 g/dL (13.0-17.5) Hematocrit 44.3 % (39.0-53.0) 41.8 % (39.0-53.0) Mean Corpuscular Volume 87 fL (79-100) 87 fL (79-100) Mean Corpuscular Hemoglobin 30 pg (25-35) 30 pg (25-35) Mean Corpuscular Hemoglobin Concent 35 g/dL (31-37) 34 g/dL (31-37) Red Cell Distribution Width 13.9 % (11.5-14.5) 14.2 % (11.5-14.5) Platelet Count 246 x10^3/uL (140-400) 221 x10^3/uL (140-400) Neutrophils (%) (Auto) 60 % (31-73) 61 % (31-73) Lymphocytes (%) (Auto) 21 % (24-48) 21 % (24-48) Monocytes (%) (Auto) 10 % (0-9) 9 % (0-9) Eosinophils (%) (Auto) 8 % (0-3) 8 % (0-3) Basophils (%) (Auto) 1 % (0-3) 1 % (0-3) Neutrophils # (Auto) 5.8 x10^3uL (1.8-7.7) 4.6 x10^3uL (1.8-7.7) Lymphocytes # (Auto) 2.0 x10^3/uL (1.0-4.8) 1.6 x10^3/uL (1.0-4.8) Monocytes # (Auto) 0.9 x10^3/uL (0.0-1.1) 0.7 x10^3/uL (0.0-1.1) Eosinophils # (Auto) 0.7 x10^3/uL (0.0-0.7) 0.6 x10^3/uL (0.0-0.7) Basophils # (Auto) 0.1 x10^3/uL (0.0-0.2) 0.1 x10^3/uL (0.0-0.2) Sodium Level 139 mmol/L (136-145) 141 mmol/L (136-145) Potassium Level 4.1 mmol/L (3.5-5.1) 3.6 mmol/L (3.5-5.1) Chloride Level 103 mmol/L (98-107) 107 mmol/L (98-107) Carbon Dioxide Level 25 mmol/L (21-32) 21 mmol/L (21-32) Anion Gap 11 (6-14) 13 (6-14) Blood Urea Nitrogen 16 mg/dL (8-26) 11 mg/dL (8-26) Creatinine 1.6 mg/dL (0.7-1.3) 1.1 mg/dL (0.7-1.3) Estimated GFR (Cockcroft-Gault) 48.4 74.5 BUN/Creatinine Ratio 10 (6-20) Glucose Level 121 mg/dL (70-99) 93 mg/dL (70-99) Calcium Level 9.2 mg/dL (8.5-10.1) 8.7 mg/dL (8.5-10.1) Total Bilirubin 0.1 mg/dL (0.2-1.0) Aspartate Amino Transf (AST/SGOT) 13 U/L (15-37) Alanine Aminotransferase (ALT/SGPT) 26 U/L (16-63) Alkaline Phosphatase 101 U/L (46-116) Total Protein 7.9 g/dL (6.4-8.2) Albumin 3.7 g/dL (3.4-5.0) Albumin/Globulin Ratio 0.9 (1.0-1.7) Medications Current Medications Sodium Chloride 1,000 ml @ 1,000 mls/hr 1X ONCE IV Last administered on at 19:16; Start 04/02/18 at 19:15; Stop 04/02/18 at 20:14; Status DC Fentanyl Citrate (Fentanyl 2ml Vial) 75 mcg 1X ONCE IV Last administered on at 19:17; Start 04/02/18 at 19:15; Stop 04/02/18 at 19:16; Status DC Ondansetron HCl (Zofran) 4 mg 1X ONCE IV Last administered on 04/02/18at 19:16 ; Start 04/02/18 at 19:15; Stop 04/02/18 at 19:16; Status DC Ondansetron HCl (Zofran) 4 mg PRN Q8HRS PRN IV NAUSEA/VOMITING; Start 04/02/18 at 20:00; Stop 04/03/18 at 19:59 Fentanyl Citrate (Fentanyl 2ml Vial) 50 mcg PRN Q1HR PRN IV PAIN Last administered on 04/02/18at 20:34; Start 04/02/18 at 20:00; Stop 04/03/18 at 19:59 Sodium Chloride 1,000 ml @ 125 mls/hr Q8H IV Last administered on 04/03/18at 06 :25; Start 04/02/18 at 19:58; Stop 04/03/18 at 19:57 Acetaminophen (Tylenol) 650 mg PRN Q4HRS PRN PO FEVER; Start 04/02/18 at 20:00 ; Stop 04/03/18 at 19:59 Levofloxacin/ Dextrose (Levaquin Per Pharmacy) 1 each PRN DAILY PRN MC SEE COMMENTS; Start 04/02/18 at 20:00 Fentanyl Citrate (Fentanyl 2ml Vial) 50 mcg 1X ONCE IV Last administered on at 20:17; Start 04/02/18 at 20:15; Stop 04/02/18 at 20:16; Status DC Levofloxacin/ Dextrose 50 ml @ 50 mls/hr Q24H IV Last administered on at 20:17; Start 04/02/18 at 20:30 Oxycodone/ Acetaminophen (Percocet 10/325) 1 tab 1X ONCE PO Last administered on 04/02/18at 20:34; Start 04/02/18 at 20:30; Stop 04/02/18 at 20:31; Status DC Active Scripts Active Reported Protonix (Pantoprazole Sodium) 20 Mg Tablet.dr 20 Mg PO DAILY Vitals/I & O Vital Sign - Last 24 Hours 04/02/18 04/02/18 04/02/18 04/02/18 18:59 19:17 19:33 19:58 Temp 97.4 97.4 Pulse 78 76 60 Resp 20 16 18 20 B/P (MAP) 181/107 (131) 160/90 (113) 166/104 (124) Pulse Ox 98 98 98 98 O2 Delivery Room Air Room Air Room Air Room Air 04/02/18 04/02/18 04/02/18 04/03/18 20:45 21:00 23:00 03:00 Temp 97.5 97.5 97.7 97.5 97.5 97.7 Pulse 60 62 71 Resp 18 18 18 B/P (MAP) 162/107 (125) 162/88 (112) 140/89 (106) Pulse Ox 93 95 97 O2 Delivery Room Air Room Air Room Air Room Air Intake and Output 04/02/18 04/02/18 04/03/18 15:00 23:00 07:00 Intake Total 150 ml 200 ml Output Total 500 ml Balance 150 ml -300 ml JR MICHEL MD Apr 03, 2018 08:01
--- NOTE | 2018-04-03 08:50 | PDOC2 ---
CLINTSALVADOR Karie [employer] 04/03/18 0849: UROLOGY CONSULT Date of Consult Date of Consult DATE: 04/03/18 TIME: 08:46 Reason for Consult Reason for Consult: Kidney stone Identification/Chief Complaint Chief Complaint Kidney stones Source Source: Chart review, Patient History of Present Illness Reason for Visit: Patient is a 37 year old male who has had numerous kidney stones. He is not sure how many exactly he has had, but this time puts him in the "double digits. " He usually tries to just let them pass, but last night the pain became very intense and so he was admitted to [facility] for this through the ER. He is currently feeling well, with pain 0/10. He denies fevers, dysuria, hematuria. When presented with the options he is OK with stone management as an outpatient and proceeding with ESWL. Current Problem List Problems: (1) Kidney calculi (2) Ureteral stone Current Medications Current Medications Current Medications Acetaminophen (Tylenol) 650 mg PRN Q4HRS PRN PO FEVER; Start 04/02/18 at 20:00 ; Stop 04/03/18 at 19:59 Fentanyl Citrate (Fentanyl 2ml Vial) 50 mcg 1X ONCE IV Last administered on at 20:17; Start 04/02/18 at 20:15; Stop 04/02/18 at 20:16; Status DC Fentanyl Citrate (Fentanyl 2ml Vial) 50 mcg PRN Q1HR PRN IV PAIN Last administered on 04/02/18at 20:34; Start 04/02/18 at 20:00; Stop 04/03/18 at 19:59 Fentanyl Citrate (Fentanyl 2ml Vial) 75 mcg 1X ONCE IV Last administered on at 19:17; Start 04/02/18 at 19:15; Stop 04/02/18 at 19:16; Status DC Levofloxacin/ Dextrose 50 ml @ 50 mls/hr Q24H IV Last administered on at 20:17; Start 04/02/18 at 20:30 Levofloxacin/ Dextrose (Levaquin Per Pharmacy) 1 each PRN DAILY PRN MC SEE COMMENTS; Start 04/02/18 at 20:00 Ondansetron HCl (Zofran) 4 mg 1X ONCE IV Last administered on 04/02/18at 19:16 ; Start 04/02/18 at 19:15; Stop 04/02/18 at 19:16; Status DC Ondansetron HCl (Zofran) 4 mg PRN Q8HRS PRN IV NAUSEA/VOMITING; Start 04/02/18 at 20:00; Stop 04/03/18 at 19:59 Oxycodone/ Acetaminophen (Percocet 10/325) 1 tab 1X ONCE PO Last administered on 04/02/18at 20:34; Start 04/02/18 at 20:30; Stop 04/02/18 at 20:31; Status DC Sodium Chloride 1,000 ml @ 125 mls/hr Q8H IV Last administered on 04/03/18at 06 :25; Start 04/02/18 at 19:58; Stop 04/03/18 at 19:57 Sodium Chloride 1,000 ml @ 1,000 mls/hr 1X ONCE IV Last administered on at 19:16; Start 04/02/18 at 19:15; Stop 04/02/18 at 20:14; Status DC Allergies Allergies: Coded Allergies: pseudoephedrine (Verified Allergy, Unknown, 04/10/13) ROS Review Of Systems: CONSTITUTIONAL: No fever or chills EYES: No recent changes SKIN: No rash or itching CARDIOVASCULAR: No chest pain, syncope, palpitations, or edema RESPIRATORY: No SOB or cough GASTROINTESTINAL: No nausea, vomiting or abdominal pain NEUROLOGICAL: No headaches or weakness ENDOCRINE: No cold or heat intolerance GENITOURINARY: + flank pain MUSCULOSKELETAL: No back pain or joint pain LYMPHATICS: No enlarged lymph nodes PSYCHIATRIC: No anxiety or depression Physical Exam Physical Exam: General: Pleasant, no acute distress, well groomed Eyes: conjunctiva anicteric, eyes full range of motion ENT: moist oral mucosa, normal dentition Neck: Trachea midline, no masses Respiratory: unlabored breathing, not using accessory muscles Back: No flank pain bilaterally Abdomen: soft, nontender, nondistended Skin: no rashes or skin lesions on visualized skin Psych: normal mood, affect. Alert and oriented x 3. Vitals VITALS Vital Signs Date Time Temp Pulse Resp B/P (MAP) Pulse Ox O2 Delivery O2 Flow Rate FiO2 04/03/18 07:00 97.7 84 18 143/92 (109) 96 Room Air 97.7 Labs Labs Laboratory Tests Test 04/02/18 19:00 04/02/18 19:05 12/3/18 06:20 Urine Collection Type Unknown Urine Color Red Urine Clarity Cloudy Urine pH 5.5 Urine Specific [place] 1.025 Urine Protein 100 mg/dL (NEG-TRACE) Urine Glucose (UA) Negative mg/dL (NEG) Urine Ketones (Stick) Trace mg/dL (NEG) Urine Blood Large (NEG) Urine Nitrite Negative (NEG) Urine Bilirubin Negative (NEG) Urine Urobilinogen Dipstick 0.2 mg/dL (0.2 mg/dL) Urine Leukocyte Esterase Small (NEG) Urine RBC Tntc /HPF (0-2) Urine WBC 1-4 /HPF (0-4) Urine Squamous Epithelial Cells None /LPF Urine Amorphous Sediment Present /HPF Urine Bacteria 0 /HPF (0-FEW) Urine Mucus Mod /LPF White Blood Count 9.5 x10^3/uL (4.0-11.0) 7.6 x10^3/uL (4.0-11.0) Red Blood Count 5.08 x10^6/uL (4.30-5.70) 4.83 x10^6/uL (4.30-5.70) Hemoglobin 15.3 g/dL (13.0-17.5) 14.4 g/dL (13.0-17.5) Hematocrit 44.3 % (39.0-53.0) 41.8 % (39.0-53.0) Mean Corpuscular Volume 87 fL (79-100) 87 fL (79-100) Mean Corpuscular Hemoglobin 30 pg (25-35) 30 pg (25-35) Mean Corpuscular Hemoglobin Concent 35 g/dL (31-37) 34 g/dL (31-37) Red Cell Distribution Width 13.9 % (11.5-14.5) 14.2 % (11.5-14.5) Platelet Count 246 x10^3/uL (140-400) 221 x10^3/uL (140-400) Neutrophils (%) (Auto) 60 % (31-73) 61 % (31-73) Lymphocytes (%) (Auto) 21 % (24-48) 21 % (24-48) Monocytes (%) (Auto) 10 % (0-9) 9 % (0-9) Eosinophils (%) (Auto) 8 % (0-3) 8 % (0-3) Basophils (%) (Auto) 1 % (0-3) 1 % (0-3) Neutrophils # (Auto) 5.8 x10^3uL (1.8-7.7) 4.6 x10^3uL (1.8-7.7) Lymphocytes # (Auto) 2.0 x10^3/uL (1.0-4.8) 1.6 x10^3/uL (1.0-4.8) Monocytes # (Auto) 0.9 x10^3/uL (0.0-1.1) 0.7 x10^3/uL (0.0-1.1) Eosinophils # (Auto) 0.7 x10^3/uL (0.0-0.7) 0.6 x10^3/uL (0.0-0.7) Basophils # (Auto) 0.1 x10^3/uL (0.0-0.2) 0.1 x10^3/uL (0.0-0.2) Sodium Level 139 mmol/L (136-145) 141 mmol/L (136-145) Potassium Level 4.1 mmol/L (3.5-5.1) 3.6 mmol/L (3.5-5.1) Chloride Level 103 mmol/L (98-107) 107 mmol/L (98-107) Carbon Dioxide Level 25 mmol/L (21-32) 21 mmol/L (21-32) Anion Gap 11 (6-14) 13 (6-14) Blood Urea Nitrogen 16 mg/dL (8-26) 11 mg/dL (8-26) Creatinine 1.6 mg/dL (0.7-1.3) 1.1 mg/dL (0.7-1.3) Estimated GFR (Cockcroft-Gault) 48.4 74.5 BUN/Creatinine Ratio 10 (6-20) Glucose Level 121 mg/dL (70-99) 93 mg/dL (70-99) Calcium Level 9.2 mg/dL (8.5-10.1) 8.7 mg/dL (8.5-10.1) Total Bilirubin 0.1 mg/dL (0.2-1.0) Aspartate Amino Transf (AST/SGOT) 13 U/L (15-37) Alanine Aminotransferase (ALT/SGPT) 26 U/L (16-63) Alkaline Phosphatase 101 U/L (46-116) Total Protein 7.9 g/dL (6.4-8.2) Albumin 3.7 g/dL (3.4-5.0) Albumin/Globulin Ratio 0.9 (1.0-1.7) Laboratory Tests Test 04/02/18 19:00 04/02/18 19:05 04/03/18 06:20 Urine Collection Type Unknown Urine Color Red Urine Clarity Cloudy Urine pH 5.5 Urine Specific [place] 1.025 Urine Protein 100 mg/dL (NEG-TRACE) Urine Glucose (UA) Negative mg/dL (NEG) Urine Ketones (Stick) Trace mg/dL (NEG) Urine Blood Large (NEG) Urine Nitrite Negative (NEG) Urine Bilirubin Negative (NEG) Urine Urobilinogen Dipstick 0.2 mg/dL (0.2 mg/dL) Urine Leukocyte Esterase Small (NEG) Urine RBC Tntc /HPF (0-2) Urine WBC 1-4 /HPF (0-4) Urine Squamous Epithelial Cells None /LPF Urine Amorphous Sediment Present /HPF Urine Bacteria 0 /HPF (0-FEW) Urine Mucus Mod /LPF White Blood Count 9.5 x10^3/uL (4.0-11.0) 7.6 x10^3/uL (4.0-11.0) Red Blood Count 5.08 x10^6/uL (4.30-5.70) 4.83 x10^6/uL (4.30-5.70) Hemoglobin 15.3 g/dL (13.0-17.5) 14.4 g/dL (13.0-17.5) Hematocrit 44.3 % (39.0-53.0) 41.8 % (39.0-53.0) Mean Corpuscular Volume 87 fL (79-100) 87 fL (79-100) Mean Corpuscular Hemoglobin 30 pg (25-35) 30 pg (25-35) Mean Corpuscular Hemoglobin Concent 35 g/dL (31-37) 34 g/dL (31-37) Red Cell Distribution Width 13.9 % (11.5-14.5) 14.2 % (11.5-14.5) Platelet Count 246 x10^3/uL (140-400) 221 x10^3/uL (140-400) Neutrophils (%) (Auto) 60 % (31-73) 61 % (31-73) Lymphocytes (%) (Auto) 21 % (24-48) 21 % (24-48) Monocytes (%) (Auto) 10 % (0-9) 9 % (0-9) Eosinophils (%) (Auto) 8 % (0-3) 8 % (0-3) Basophils (%) (Auto) 1 % (0-3) 1 % (0-3) Neutrophils # (Auto) 5.8 x10^3uL (1.8-7.7) 4.6 x10^3uL (1.8-7.7) Lymphocytes # (Auto) 2.0 x10^3/uL (1.0-4.8) 1.6 x10^3/uL (1.0-4.8) Monocytes # (Auto) 0.9 x10^3/uL (0.0-1.1) 0.7 x10^3/uL (0.0-1.1) Eosinophils # (Auto) 0.7 x10^3/uL (0.0-0.7) 0.6 x10^3/uL (0.0-0.7) Basophils # (Auto) 0.1 x10^3/uL (0.0-0.2) 0.1 x10^3/uL (0.0-0.2) Sodium Level 139 mmol/L (136-145) 141 mmol/L (136-145) Potassium Level 4.1 mmol/L (3.5-5.1) 3.6 mmol/L (3.5-5.1) Chloride Level 103 mmol/L (98-107) 107 mmol/L (98-107) Carbon Dioxide Level 25 mmol/L (21-32) 21 mmol/L (21-32) Anion Gap 11 (6-14) 13 (6-14) Blood Urea Nitrogen 16 mg/dL (8-26) 11 mg/dL (8-26) Creatinine 1.6 mg/dL (0.7-1.3) 1.1 mg/dL (0.7-1.3) Estimated GFR (Cockcroft-Gault) 48.4 74.5 BUN/Creatinine Ratio 10 (6-20) Glucose Level 121 mg/dL (70-99) 93 mg/dL (70-99) Calcium Level 9.2 mg/dL (8.5-10.1) 8.7 mg/dL (8.5-10.1) Total Bilirubin 0.1 mg/dL (0.2-1.0) Aspartate Amino Transf (AST/SGOT) 13 U/L (15-37) Alanine Aminotransferase (ALT/SGPT) 26 U/L (16-63) Alkaline Phosphatase 101 U/L (46-116) Total Protein 7.9 g/dL (6.4-8.2) Albumin 3.7 g/dL (3.4-5.0) Albumin/Globulin Ratio 0.9 (1.0-1.7) Images Images CT ABD/PELVIS DONE 04/03/18: IMPRESSION: Proximal and distal left ureteral stones apparently causing mild obstruction. Assessment/Plan Assessment/Plan Patient had two stones found on CT yesterday but is without pain today. We will get a KUB to check stones Continue pain/nausea control NPO until surgical decision has been made Discussed with patient and attending RN; all questions answered UPDATE 10:30 KUB shows that stone has not moved. Currently he is afebrile with NL WBC at 7.5 and RESOLUTE PROFESSIONAL improved to 1.1. [t will proceed for EWSL as an outpatient. 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 Patient may eat. Can go home on pain control from a Urology perspective whenever medical team is agreeable. TERENCE MALONE MD 04/03/18 1137: UROLOGY CONSULT Assessment/Plan Assessment/Plan agree w history and exam. KUB with stone at L3 level. ua w no bacteria. SSP v URS V Eswl are options. SALVADOR JARAMILLO APRN Apr 03, 2018 08:49 TERENCE MALONE MD Apr 03, 2018 11:37
--- NOTE | 2018-04-03 09:26 | RAD ---
KUB, 04/03/2018: HISTORY: Left ureteral calculus The abdominal gas pattern is unremarkable. The renal regions are partially obscured by overlying bowel. The patient's known intrarenal calculi are not clearly visualized. There is a 5 mm left paraspinous radiopacity at the L2-3 level representing the patient's known left ureteral calculus delineated on yesterday's CT study. It is unchanged in position. IMPRESSION: Unchanged proximal left ureteral calculus. Electronically signed by: Gutierrez Collier MD (04/03/2018 9:22 AM) [facility]
--- NOTE | 2018-04-03 09:38 | HP ---
ADMIT DATE: 04/02/2018 CHIEF COMPLAINT: Left flank pain. HISTORY OF PRESENT ILLNESS: The patient is a 37-year-old male with a history of previous renal stones. He presented to the Emergency Room with the above complaint. He reported he had been experiencing some mild intermittent left flank pain and occasional hematuria for several weeks. He assumed that this was due to a renal stone as he has experienced this previously. He was not in too much discomfort and was trying to drink extra fluids to help the stone to pass. However, on the evening of admission, he had the abrupt onset of much more severe pain in the left flank area. This was accompanied by some nausea and diaphoresis, and he came to the Emergency Room promptly due to this. Evaluation there included a CAT scan, which showed stones in the proximal and distal left ureter with some accompanying left hydronephrosis. Treatment was initiated, and he was admitted for further care. PAST MEDICAL HISTORY: Renal stones, GERD, BPH. PAST SURGICAL HISTORY: Hydrocele repair, left knee surgery. FAMILY HISTORY: Noncontributory. SOCIAL HISTORY: The patient does not smoke cigarettes or drink alcohol to excess. He is . 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 REVIEW OF SYSTEMS: The patient denies fever or chills. He denies cough or shortness of breath. He denies chest pain or palpitations. He was having some pleuritic right-sided chest pain a month or more ago, but this has gradually resolved. He has not received a flu shot this fall yet. He denies abdominal pain, nausea or vomiting. He denies problems with his bowels. He does notice intermittent dysuria. PHYSICAL EXAMINATION: GENERAL: The patient is alert and oriented x 3, resting comfortably in bed in no acute distress. HEENT: PERRL, EOMI, sclerae clear. Oropharynx: Mucous membranes moist. NECK: Supple, without lymphadenopathy. CHEST: Clear to auscultation. CARDIOVASCULAR: Regular rhythm without murmur. ABDOMEN: Soft, nontender, normoactive bowel sounds are present. EXTREMITIES: Without edema. BACK: Mild left CVA tenderness to palpation. ASSESSMENT AND PLAN: 1. Renal stones with hydronephrosis. The patient is much more comfortable now with fentanyl as needed. His creatinine was elevated at admission, but this is much improved with IV fluids overnight. He has been started on Levaquin as his urine did have 1-4 rbc's present. A urine culture is pending. Urology has been consulted to help with further management, and a cystoscopy is anticipated. We will continue the patient n.p.o. for now with pain medicine as needed. 2. Elevated blood pressure. The patient does not have a history of hypertension, and he was normotensive on a recent office visit. Suspect his elevated blood pressure is due to discomfort. We will continue to follow up. JR MICHEL MD DR: YONY/daron JOB#: [id number] / [id number]
[2018-04-03 11:00] VITALS: BP 148/96
[2018-04-03 15:00] VITALS: BP 137/91
[2018-04-03] MEDS ORDERED: HYDR-2769 PO (17:51)
--- NOTE | 2018-04-04 09:39 | DS ---
DATE OF DISCHARGE: 04/03/2018 CHIEF COMPLAINT: Left flank pain. HISTORY OF PRESENT ILLNESS: The patient is a 37-year-old male with a history of previous renal stones. He presented to the Emergency Room with the above complaint. He reported he had been experiencing some mild intermittent left flank pain and occasional hematuria for several weeks. He assumed this was due to a renal stone as he has experienced this previously. He was not in too much discomfort and was trying to drink extra fluids to help the stone to pass. However, on the evening of admission, he had the abrupt onset of much more severe pain in the left flank area. This was accompanied by some nausea and diaphoresis and he came to the Emergency Room promptly due to this. Evaluation there included a CT scan, which showed stones in the proximal and distal left ureter with some accompanying left hydronephrosis. Treatment was initiated and he was admitted for further care. HOSPITAL COURSE: The patient was admitted and placed on IV fluids. His pain was treated with IV pain medication and he had good improvement in his pain with this. He was seen in consultation by Urology. A KUB was done on the morning after admission, which showed that the proximal stone was still present, but the distal stone was not seen. Urology felt that this probably indicated that he had passed that stone. His pain resolved and he was tolerating a regular diet. Urology recommended that the patient be discharged home and follow up with them as an outpatient for treatment on the proximal stone. He was strongly advised to return to the Emergency Room if his pain recurred. FINAL DIAGNOSIS: Renal stones. DISCHARGE MEDICATIONS: The patient does not take any prescription medication regularly. FOLLOWUP: With Urology as scheduled. Followup with Dr. Reeves as needed. JR REEVES MD DR: YONY/daron JOB#: [id number] / [id number]
== END 2018-04-03 18:02 | disposition home or self-care (01) | DRG 694 ==
LOC: ER 18:57 → 4 NORTH 19:46
PROVIDERS: ADMIT Family Medicine; ATTEND Family Medicine
DX: N13.2 Hydronephrosis with renal and ureteral calculous obstruction (principal); K21.9 Gastro-esophageal reflux disease without esophagitis; N40.0 Benign prostatic hyperplasia without lower urinary tract symptoms; Z87.442 Personal history of urinary calculi; Z88.8 Allergy status to other drugs, medicaments and biological substances; Z79.899 Other long term (current) drug therapy; N39.0 Urinary tract infection, site not specified
CPT/HCPCS: 36415; 74018; 74176; 80048; 80053; 81001; 85025; 87086; J1956; J2405; J3010; J7030

== ENCOUNTER 2018-04-23 21:07 | Emergency (ER) | payer BC ==
[~2018-04-23] VITALS: Ht 182.9 cm; Wt 95.3 kg
[2018-04-23 21:07] VITALS: BP 144/88
[~2018-04-23 21:07] MED LIST changes: +HYDR-2769 PO; +PANT20TA2 PO
[2018-04-23] MEDS ORDERED: LIDOCAINE 1% Multi-Dose 20 ML VIAL. INJ ONE (22:00)
[2018-04-23] MEDS ORDERED: DIPHTH,PERTUSS(ACELL),TET TOX 0.5 ML DISP.SYRIN. VAX IM ONE (22:00)
[2018-04-23] MEDS ORDERED: HYDR-3164 PO (22:22)
--- NOTE | 2018-04-23 22:23 | PHYS DOC ---
Past Medical History Past Medical History: GERD, Kidney Stone Additional Past Medical Histor: kidney stones Past Surgical History: Other Additional Past Surgical Histo: Hydrocele, left knee, belly button surgery, hernia Alcohol Use: Occasionally Drug Use: None Adult General Chief Complaint Chief Complaint: LACERATION/AVULSION HPI HPI Patient is a 37 year old male who presents with lacerations that happened after he was installing new cable at his home and cut his right hand with an X- [employer] knife. His tetanus status is out of date. He denies any other injury. Review of Systems Review of Systems Constitutional: Denies fever or chills [] Eyes: Denies change in visual acuity, redness, or eye pain [] HENT: Denies nasal congestion or sore throat [] Respiratory: Denies cough or shortness of breath [] Cardiovascular: No additional information not addressed in HPI [] GI: Denies abdominal pain, nausea, vomiting, bloody stools or diarrhea [] : Denies dysuria or hematuria [] Musculoskeletal: Denies back pain or joint pain [] Integument: See history of present illness Neurologic: Denies headache, focal weakness or sensory changes [] Endocrine: Denies polyuria or polydipsia [] All other systems were reviewed and found to be within normal limits, except as documented in this note. Current Medications Current Medications Current Medications Medications (Trade) Dose Ordered Sig/Anya Start Time Stop Time Status Last Admin Dose Admin Diphtheria/ Tetanus/Acell Pertussis (Boostrix) 0.5 ml ONCE ONCE 04/23/18 22:00 04/23/18 22:01 DC 04/23/18 22:07 0.5 ML Lidocaine HCl (Lidocaine 1% 20ml Vial) 20 ml 1X ONCE 04/23/18 22:00 04/23/18 22:01 DC 04/23/18 22:00 20 ML Allergies Allergies Allergies Coded Allergies Type Severity Reaction Last Updated Verified pseudoephedrine Allergy Unknown 04/10/13 Yes Physical Exam Physical Exam Constitutional: Well developed, well nourished, no acute distress, non-toxic appearance. [] Cardiovascular:Heart rate regular rhythm, no murmur [] Lungs & Thorax: Bilateral breath sounds clear to auscultation [] Abdomen: Bowel sounds normal, soft, no tenderness, no masses, no pulsatile masses. [] Skin: There is a 2 cm laceration that is deep to the base of the first digit as well as a 1 cm laceration near the fingernail of the first digit, bleeding is controlled Back: No tenderness, no CVA tenderness. [] Extremities: No tenderness, no cyanosis, no clubbing, ROM intact, no edema. [] Neurologic: Alert and oriented X 3, normal motor function, normal sensory function, no focal deficits noted. [] Psychologic: Affect normal, judgement normal, mood normal. [] Current Patient Data Vital Signs Vital Signs Date Time Temp Pulse Resp B/P (MAP) Pulse Ox O2 Delivery O2 Flow Rate FiO2 04/23/18 21:07 98.8 73 14 144/88 (106) 98 Room Air 98.8 EKG EKG [] Radiology/Procedures Radiology/Procedures Laceration Repair by me: Anesthesia: 1% lidocaine locally Location: Right first digit Tendon/Joint/Nerves: No injury Foreign body: None detected after copious irrigation and exploration Technique: 4 Simple Interrupted Sutures to the 2 cm laceration, 1 simpler acted suture to the 1 cm laceration Complexity: No subcutaneous sutures/mucosal repair/edge excision Post Closure Length: 2 cm and 1 cm Patient's bleeding was easily controlled in the department and there is no indication of anemia. No evidence of compartment syndrome, neurologic injury, vascular injury, open joint, tendon laceration, or foreign body. Patient is appropriate for outpatient follow up. 48 hour wound check. Scar minimization instructions given.[] Course & Med Decision Making Course & Med Decision Making Pertinent Labs and Imaging studies reviewed. (See chart for details) [] Dragon Disclaimer Dragon Disclaimer This electronic medical record was generated, in whole or in part, using a voice recognition dictation system. Departure Departure Impression: Primary Impression: Laceration Additional Impression: Need for tetanus booster Disposition: HOME, SELF-CARE Condition: STABLE Referrals: JR MICHEL MD (PCP) Patient Instructions: Laceration Care, Adult Additional Instructions: Take the medication as directed. Do not drive or operate heavy machinery while taking this medication. Watch the lacerations closely for signs of infection. If worsening follow-up with your primary care provider or return to the emergency department. Follow-up with your PCP in 7-10 days for suture removal. Scripts Hydrocodone/Apap 5-325 (NORCO 5-325 TABLET) 1 Each Tablet 1 TAB PO PRN Q6HRS PRN for PAIN, #20 TAB 0 Refills Prov: RAÚL LOPEZ APRN 04/23/18 Problem Qualifiers RAÚL LOPEZ APRN Apr 23, 2018 22:23
== END 2018-04-23 22:32 | disposition home or self-care (01) ==
LOC: ER 21:07
DX: S61.210A Laceration without foreign body of right index finger without damage to nail, initial encounter (principal); K21.9 Gastro-esophageal reflux disease without esophagitis; Z87.442 Personal history of urinary calculi; Z88.8 Allergy status to other drugs, medicaments and biological substances; W26.0XXA Contact with knife, initial encounter; Y93.89 Activity, other specified; Y92.098 Other place in other non-institutional residence as the place of occurrence of the external cause; Y99.8 Other external cause status
CPT/HCPCS: 12002; 90471; 90715; 99284

== ENCOUNTER → 2019-10-18 | Outpatient (CLI) | payer BC ==
[~2019-10-18] MED LIST changes: +HYDR-3164 PO
--- NOTE | 2019-10-18 10:51 | RAD ---
EXAMINATION: Magnetic resonance imaging (MRI) of the lumbar spine without contrast 10/18/2019 9:45 AM HISTORY: Lumbar radiculopathy, right greater than left TECHNIQUE: Multiplanar multi-weighted MRI of the lumbar spine was performed without intravenous contrast using the standard lumbar spine protocol. Contrast information: None administered. COMPARISON: None available. FINDINGS: The alignment of the lumbar spine is normal. Vertebral bodies demonstrate normal signal intensity on all sequences. There are no compression fractures. The conus medullaris terminates at the level of T12-L1. The distal spinal cord signal intensity is normal. Intervertebral disks have normal height and signal intensity. There are no annular fissures identified. Limited views of the abdomen and pelvis show no soft tissue abnormality. The aorta is normal. L1-L2: The disc is normal in configuration. There is no facet arthropathy. There is no neuroforaminal stenosis. There is no spinal canal stenosis. L2-L3: The disc is normal in configuration. There is no facet arthropathy. There is no neuroforaminal stenosis. There is no spinal canal stenosis. L3-L4: The disc is normal in configuration. There is no facet arthropathy. There is no neuroforaminal stenosis. There is no spinal canal stenosis. L4-L5: The disc is normal in configuration. There is no facet arthropathy. There is no neuroforaminal stenosis. There is no spinal canal stenosis. L5-S1: The disc is normal in configuration. There is no facet arthropathy. There is no neuroforaminal stenosis. There is no spinal canal stenosis. IMPRESSION: No disc herniation, neuroforaminal or spinal canal stenosis. Electronically signed by: Megha Potter MD (10/18/2019 10:48 AM) [facility]
== END | disposition home or self-care (01) ==
LOC: MRI 09:07
PROVIDERS: ATTEND Family Medicine
DX: M54.16 Radiculopathy, lumbar region (principal)
CPT/HCPCS: 72148

== ENCOUNTER 2020-01-13 04:46 | Emergency (ER) | payer BC ==
[~2020-01-13] VITALS: Ht 182.9 cm; Wt 97.7 kg
--- NOTE | 2020-01-13 05:32 | PHYS DOC ---
Past Medical History Past Medical History: GERD, Kidney Stone Additional Past Medical Histor: kidney stones (LAYTON YORK MD) Past Surgical History: Other Additional Past Surgical Histo: Hydrocele, left knee, belly button surgery, hernia (LAYTON YORK MD) Smoking Status: Never Smoker Alcohol Use: Occasionally Drug Use: None (LAYTON YORK MD) General Adult EDM: Chief Complaint: SHORTNESS OF BREATH HPI: HPI: Patient is a 39 year old male who presents with a day and a half history of fevers chills cough myalgias. Patient has no known COVID-19 exposures. Patient symptoms are worse with coughing. Patient has some shortness of breath is worse with exertion. Patient symptoms are better with taking antipyretics [id number]. (LAYTON YORK MD) Review of Systems: Review of Systems: Constitutional: Complains of fever and chills Eyes: Denies change in visual acuity. [] HENT: Complains of congestion Respiratory: Complains of cough or shortness of breath. [] Cardiovascular: Denies chest pain or edema. [] GI: Denies abdominal pain, nausea, vomiting, bloody stools or diarrhea. [] : Denies dysuria. [] Musculoskeletal: Denies back pain complains of knee pain Integument: Denies rash. [] Neurologic: Denies headache, focal weakness or sensory changes. [] Endocrine: Denies polyuria or polydipsia. [] Lymphatic: Denies swollen glands. [] Psychiatric: Denies depression or anxiety. [] (LAYTON YORK MD) Heart Score: Risk Factors: Risk Factors: DM, Current or recent (<one month) smoker, HTN, HLP, family history of CAD, obesity. Risk Scores: Score 0 - 3: 2.5% MACE over next 6 weeks - Discharge Home Score 4 - 6: 20.3% MACE over next 6 weeks - Admit for Clinical Observation Score 7 - 10: 72.7% MACE over next 6 weeks - Early Invasive Strategies (LAYTON YORK MD) Current Medications: Current Medications Medications (Trade) Dose Ordered Sig/Anya Start Time Stop Time Status Last Admin Dose Admin Acetaminophen (Tylenol) 1,000 mg 1X ONCE 01/13/20 05:30 01/13/20 05:31 UNV Sodium Chloride 1,000 ml @ 1,000 mls/hr 1X ONCE 01/13/20 05:30 01/13/20 06:29 UNV (LAYTON YORK MD) Allergies: Allergies: Allergies Coded Allergies Type Severity Reaction Last Updated Verified pseudoephedrine Allergy Unknown 04/10/13 Yes (LAYTON YORK MD) Physical Exam: PE: Constitutional: Well developed, well nourished, mild acute distress, non-toxic appearance. [] HENT: Normocephalic, atraumatic, bilateral external ears normal, nasal congestion no trismus Eyes: PERRLA, EOMI, conjunctiva normal, no discharge. [] Neck: Normal range of motion, no tenderness, supple, no stridor. [] Cardiovascular: Tachycardia, peripheral pulses intact, cap refill brisk Lungs & Thorax: Diminished breath sounds bilaterally, scattered rhonchi Abdomen: Bowel sounds normal, soft, no tenderness, no masses, no pulsatile masses. [] Skin: Warm, dry, no erythema, no rash. [] Back: No tenderness, no CVA tenderness. [] Extremities: No tenderness, no cyanosis, no clubbing, ROM intact, no edema. [] Neurologic: Alert and oriented X 3, normal motor function, normal sensory function, no focal deficits noted. [] Psychologic: Affect normal, judgement normal, mood normal. [] (LAYTON YORK MD) Current Patient Data: Vital Signs: Vital Signs Date Time Temp Pulse Resp B/P (MAP) Pulse Ox O2 Delivery O2 Flow Rate FiO2 01/13/20 05:08 99.3 105 28 151/88 (109) 94 Room Air 99.3 (LAYTON YORK MD) EKG: EKG: EKG interpreted by me normal sinus rhythm with rate 92 left axis deviation nonspecific ST changes normal intervals [] (LAYTON YORK MD) Radiology/Procedures: Radiology/Procedures: [] (LAYTON YORK MD) Course & Med Decision Making: Course & Med Decision Making Pertinent Labs and Imaging studies reviewed. (See chart for details) [] 39-year-old male with cold-like symptoms. Patient has mild labored breathing and oxygen levels 93 to 95%, I discussed with pharmacy and will get him the inhaler and see if that opens him up some. Labs and chest x-ray are pending, care will be signed over Dr. Ryan to follow-up on labs and x-ray and response to treatment and final disposition is pending. (LAYTON YORK MD) Course & Med Decision Making Assumed care of patient from Dr York at check out. At check out, Xray and labs were pending. Patient's labs and presentation are concerning for COVID19. Patient's clinical presentation improved with inhaler. I have discussed results and concerns with the patient. I offered the patient admission due to increased work of breathing, however patient declines. He would like to try to go home with symptomatic care. At this time patient is oxygenating well. Will discharge the patient home with azithromycin, cough medication, and medrol. I have discussed with him he may need to return for admission as the illness prog resses. Patient's test results and vitals while in the ED were fully reviewed and discussed with the patient. Patient is stable and at this time does not need admission to the hospital. We have discussed strict return precautions and the importance of following up with their Primary Care Physician. Patient stated understanding and was given an opportunity to ask any questions. Patient is in agreement with plan. (DAYLIN RYAN MD) Dragon Disclaimer: Dragon Disclaimer: This electronic medical record was generated, in whole or in part, using a voice recognition dictation system. (LAYTON YORK MD) Departure Departure Impression: Primary Impression: Fever Additional Impressions: Suspected COVID-19 virus infection Dyspnea Disposition: 01 HOME, SELF-CARE Condition: STABLE Referrals: JR MICHEL MD (PCP) Patient Instructions: Shortness of Breath Additional Instructions: Thank you for visiting [facility]. We appreciate you trusting us with your care. If any additional problems come up please don't hesitate to return to visit us. Follow up with your primary care provider so they can plan additional care if needed and know about the problem that you had today. If symptoms worsen come back to the Emergency Department. Any concerning symptoms that start such as chest pain, shortness of air, weakness or numbness on one side of the body, running high fevers or any other concerning symptoms return to the ER. You have a viral syndrome which may include symptoms like muscle aches, fevers, chills, runny nose, cough, sneezing, sore throat, nausea, vomiting, or diarrhea. One of the potential viruses that you may have is SARS-CoV-2, the virus that causes COVID-19, also known as the Coronavirus. You are just as likely to have a different viral infection such as the common cold, flu, etc. Most patients with the Coronavirus have mild symptoms and recover on their own. Resting, staying hydrated, and sleep based on known cases can be helpful. As of todays visit, you are well enough to go home and treat your symptoms with oral fluids and over the counter medications. If Coronavirus testing was performed today the results will not be available for possibly up to 3-4 days. If your result is positive you will be contacted. Please follow the following precautions at home: 1. Stay home except to get medical care. 2. As advised by the CDC, we recommend that you stay in your home and minimize contact with other people. We do not want you to spread the infection. 3. Those who are older or have significant medical issues may have more severe symptoms from this infection. We recommend self-isolation FOR AT LEAST 7 DAYS after your 1st day of symptoms. AFTER you feel better please wait AT LEAST ANOTHER WEEK before returning to regular activities and being around other people. 4. IF you become sicker and have difficulty breathing, chest pain, are unable to eat/drink, severe vomiting, diarrhea, or weakness you may need to return to the Emergency Department. 5. You should restrict activities outside of your home, except for getting medical care. DO NOT go to work, school, or public areas. Avoid using public transportation, ride sharing, or taxis. 6. Separate yourself from other people in your home. You should use a separate bathroom if possible. 7. Avoid sharing personal household items such as dishes, cups, eating utensils, towels, etc. 8. Clean all high touch surfaces every day (door knobs, counter tops, etc). Use a household cleaning spray or wipe per label instructions. 9. Clean your hands often. Wash your hands with soap and water for at least 20 seconds. 10. Cover your mouth and nose when you cough or sneeze. 11. Throw used tissues in the trash and immediately wash your hands. For additional resources please visit the CDC website or the [facility] ([phone]), you may also call 211 for further information. Scripts Guaifenesin/Codeine Phosphate (GUAIFENESIN-CODEINE SYRUP) 118 Ml Liquid 5 ML PO Q6HRS PRN for COUGH, #120 ML Prov: DAYLIN RYAN MD 01/13/20 Methylprednisolone (MEDROL) 4 Mg Tab.ds.pk 1 PKG PO UD for inflammation, #1 PKG Prov: DAYLIN RYAN MD 01/13/20 Azithromycin (ZITHROMAX) 250 Mg Tablet 1 PKG PO UD, #6 TAB Prov: DAYLIN RYAN MD 01/13/20 Justicifation of Admission Dx: Justifications for Admission: Justification of Admission Dx: N/A (LAYTON YORK MD) Justification of Admission Dx: N/A (DAYLIN RYAN MD) LAYTON YORK MD Jan 13, 2020 05:32 DAYLIN RYAN MD Jan 13, 2020 07:17
[2020-01-13] MEDS ORDERED: ALBUTEROL SULFATE 8GM INHALER. INH PRN (05:45)
[2020-01-13] MEDS ORDERED: IV NORMAL SALINE 1000ML BAG 1,000 ML IV ONE (06:00)
[2020-01-13] MEDS ORDERED: ACETAMINOPHEN 500 MG TABLET PO ONE (06:00)
--- NOTE | 2020-01-13 06:02 | RAD ---
EXAM: CHEST 1 VIEW History: Covid COMPARISON: 02/27/2018 TECHNIQUE: Single portable radiograph of the chest FINDINGS: The cardiac silhouette is unremarkable. The lungs are clear bilaterally. The costophrenic sulci are clear and well demarcated. IMPRESSION: No radiographic evidence of an acute cardiopulmonary process. Electronically signed by: Que Mercer MD (01/13/2020 5:59 AM) [id number]
[2020-01-13 06:11] LABS: BASO % 0 % (0-3); EOS # 0.4 x10^3/uL (0.0-0.7); EOS % 3 % (0-3); HEMATOCRIT 42.2 % (39.0-53.0); HEMOGLOBIN 14.5 g/dL (13.0-17.5); LYMPH # 0.6 x10^3/uL (1.0-4.8); LYMPH % 5 % (24-48); MEAN CORPUSCULAR HEMOGLOBIN 30 pg (25-35); MEAN CORPUSCULAR HGB CONC 35 g/dL (31-37); MEAN CORPUSCULAR VOLUME 87 fL (79-100); MONO # 0.7 x10^3/uL (0.0-1.1); MONO % 6 % (0-9); NEUT # 10.8 x10^3/uL (1.8-7.7); NEUT % 86 % (31-73); PLATELET COUNT 179 x10^3/uL (140-400); RED BLOOD COUNT 4.84 x10^6/uL (4.30-5.70); RED CELL DISTRIBUTION WIDTH 13.9 % (11.5-14.5); WHITE BLOOD COUNT 12.5 x10^3/uL (4.0-11.0)
[2020-01-13 06:17] LABS: CALCIUM 9.1 mg/dL (8.5-10.1); CREATININE 1.2 mg/dL (0.7-1.3); GFR 66.7; POTASSIUM 4.1 mmol/L (3.5-5.1)
[2020-01-13 06:22] LABS: PROTHROMBIN TIME PATIENT 12.7 SEC (11.7-14.0)
[2020-01-13 06:26] LABS: D-DIMER 0.79 ug/mlFEU (0.00-0.50)
[2020-01-13 06:34] LABS: ALBUMIN 3.6 g/dL (3.4-5.0); ALBUMIN/GLOBULIN RATIO 0.9 (1.0-1.7); C-REACTIVE PROTEIN 58.4 mg/L (0-3.3); TOTAL BILIRUBIN 0.5 mg/dL (0.2-1.0); TOTAL PROTEIN 7.7 g/dL (6.4-8.2)
[2020-01-13] MEDS ORDERED: GUAI118L13 PO (07:11)
[2020-01-13] MEDS ORDERED: AZIT250T PO (07:11)
[2020-01-13] MEDS ORDERED: METH4TAB2 PO (07:11)
[2020-01-13 07:30] VITALS: BP 150/89
[2020-01-13 07:55] LABS: % BANDS 8 % (0-9); % EOS 6 % (0-5); % LYMPHS 6 % (24-48); % MONOS 2 % (0-10); % SEGS 78 % (35-66); PLT ESTIMATE ADEQUATE (ADEQUATE)
--- NOTE | 2020-01-14 08:54 | EKG ---
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
== END 2020-01-13 08:05 | disposition home or self-care (01) ==
LOC: ER 04:46
DX: R50.9 Fever, unspecified (principal); Z20.828 Contact with and (suspected) exposure to other viral communicable diseases; R05 Cough; R06.02 Shortness of breath; R06.00 Dyspnea, unspecified; K21.9 Gastro-esophageal reflux disease without esophagitis; Z87.442 Personal history of urinary calculi; Z98.890 Other specified postprocedural states; Z88.8 Allergy status to other drugs, medicaments and biological substances
CPT/HCPCS: 36415; 71045; 80053; 82550; 82728; 83605; 83615; 84145; 84466; 84484; 85007; 85025; 85379; 85610; 85730; 86140; 87040; 93005; 96360; 99285; J7030; U0003

== ENCOUNTER 2021-05-22 23:01 | Emergency (ER) | payer BC ==
[~2021-05-22] VITALS: Ht 182.9 cm; Wt 98.0 kg
[~2021-05-22 23:01] MED LIST changes: +AZIT250T PO; +CYCL10TA19 PO; -CYCL10TA2 PO; +GUAI118L13 PO; +METH4TAB2 PO; +NAPR-699 PO; -NAPR250T6 PO
[2021-05-22] MEDS ORDERED: IV RINGERS,LACTATED 1000ML 1,000 ML IV ONE (23:15)
[2021-05-22] MEDS ORDERED: MORPHINE SULFATE 2 MG/ML INJ. IVP ONE (23:15)
[2021-05-22 23:40] LABS: BILIRUBIN,URINE NEGATIVE (NEG); CLARITY,URINE CLEAR; COLOR,URINE YELLOW; NITRITE,URINE NEGATIVE (NEG); PH,URINE 5.5 (<5.0-8.0); PROTEIN,URINE NEGATIVE (NEG-TRACE); UROBILINOGEN,URINE 0.2 mg/dL (0.2 mg/dL)
[2021-05-22] MEDS ORDERED: MORPHINE SULFATE 4 MG/ML INJ. IVP ONE (23:45)
[2021-05-22] MEDS ORDERED: KETOROLAC 30 MG/ML VIAL. IVP ONE (23:45)
[2021-05-22 23:48] LABS: BACTERIA,URINE 0 /HPF (0-FEW); RBC,URINE TNTC /HPF (0-2); WBC,URINE OCC /HPF (0-4)
--- NOTE | 2021-05-22 23:49 | PHYS DOC ---
Past Medical History Past Medical History: GERD, Kidney Stone Additional Past Medical Histor: obesity Past Surgical History: Other Additional Past Surgical Histo: Hydrocele, left knee, belly button surgery, hernia, lithotripsy w/ stent Smoking Status: Never Smoker Alcohol Use: Occasionally Drug Use: None General Adult EDM: Chief Complaint: FLANK PAIN HPI: HPI: Patient is a 40 year old male with history of kidney stones requiring lithotripsy and stent placement who presents with right-sided flank pain that began 45 minutes ago. Patient states the pain started as mild, has gradually progressed and is now constant 10/10 nonradiating. Patient denies fever, chills, generalized weakness, abdominal pain, NVD, dysuria, hematuria. Review of Systems: Review of Systems: Constitutional: See HPI Eyes: Denies change in visual acuity, visual field deficits or discharge HENT: Denies ear pain, nasal congestion or sore throat Respiratory: Denies cough or shortness of breath Cardiovascular: Denies chest pain, palpitations or edema GI: See HPI : See HPI Musculoskeletal: See HPI Integument: Denies rash or other skin lesion Neurologic: Denies headache, focal weakness or sensory changes Heart Score: C/O Chest Pain: No Current Medications: Current Medications Medications (Trade) Dose Ordered Sig/Anya Start Time Stop Time Status Last Admin Dose Admin Ketorolac Tromethamine (Toradol 30mg Vial) 15 mg 1X ONCE 05/22/21 23:45 05/22/21 23:46 Morphine Sulfate (Morphine Sulfate) 4 mg 1X ONCE 05/22/21 23:45 05/22/21 23:46 Ringer's Solution 1,000 ml @ 1,000 mls/hr 1X ONCE 05/22/21 23:15 05/23/21 00:14 05/22/21 23:24 1,000 MLS/HR Allergies: Allergies: Allergies Coded Allergies Type Severity Reaction Last Updated Verified pseudoephedrine Allergy Intermediate 01/13/20 Yes Physical Exam: PE: Constitutional: Morbidly obese, patient obviously in pain, non-toxic appearance. HENT: Normocephalic, atraumatic, bilateral external ears normal, nose normal. Eyes: EOMI, conjunctiva normal, no discharge. Neck: Normal range of motion, no stridor. Abdomen: Protuberant abdomen, bowel sounds normal, soft, no tenderness, no masses, no pulsatile masses. Skin: Warm, dry, no erythema, no rash. Back: No step-off, no midline tenderness, + right-sided CVA tenderness Current Patient Data: Labs: Laboratory Tests Test 05/22/21 23:05 Urine Collection Type Unknown Urine Color Yellow Urine Clarity Clear Urine pH 5.5 (<5.0-8.0) Urine Specific Allen 1.015 (1.000-1.030) Urine Protein Negative mg/dL (NEG-TRACE) Urine Glucose (UA) Negative mg/dL (NEG) Urine Ketones (Stick) 15 mg/dL (NEG) Urine Blood Large (NEG) Urine Nitrite Negative (NEG) Urine Bilirubin Negative (NEG) Urine Urobilinogen Dipstick 0.2 mg/dL (0.2 mg/dL) Urine Leukocyte Esterase Negative (NEG) Urine RBC Tntc /HPF (0-2) Urine WBC Occ /HPF (0-4) Urine Squamous Epithelial Cells Occ /LPF Urine Bacteria 0 /HPF (0-FEW) Urine Mucus Mod /LPF Vital Signs: Vital Signs Date Time Temp Pulse Resp B/P (MAP) Pulse Ox O2 Delivery O2 Flow Rate FiO2 05/23/21 00:28 20 95 Room Air 05/23/21 00:01 22 95 05/23/21 00:00 68 22 176/87 (116) 96 Room Air 05/22/21 23:58 18 97 Room Air 05/22/21 23:31 18 96 Room Air 05/22/21 23:02 98.0 70 22 144/90 (108) 97 Room Air 98.0 Radiology/Procedures: Radiology/Procedures: PROCEDURE: CT ABDOMEN PELVIS WO CONTRAST EXAMINATION: CT abdomen and pelvis without IV contrast. INDICATION:40 years, Male, pain. TECHNIQUE: Axial CT images of the abdomen and pelvis were obtained. Coronal and sagittal reformatted performed. COMPARISON: 04/02/2018. Exposure: One or more of the following individualized dose reduction techniques were utilized for this examination: 1. Automated exposure control 2. Adjustment of the mA and/or kV according to patient size 3. Use of iterative reconstruction technique. FINDINGS: LOWER CHEST: Unremarkable. ABDOMEN/PELVIS: Within the limitation of noncontrast exam, Mild right hydroureteronephrosis secondary to 5 mm obstructing calculus in the distal ureter. No left hydronephrosis. Punctate nonobstructing bilateral nephrolithiasis, the largest in the right kidney measures 2.7 mm. Decompressed urinary bladder which limits evaluation. Punctate calcifications in the prostate. Liver, spleen, pancreas, gallbladder, biliary ducts and adrenal glands are unremarkable. No bowel obstruction. Normal appendix. No lymphadenopathy. Normal caliber abdominal aorta. No pneumoperitoneum or ascites. MUSCULOSKELETAL STRUCTURES: No acute osseous process. IMPRESSION: 1. Mild right hydroureteronephrosis secondary to 5 mm obstructing calculus in the distal ureter. 2. Punctate nonobstructing bilateral nephrolithiasis. Electronically signed by: Pop Zavala MD (05/23/2021 12:00 AM) [facility] Course & Med Decision Making: Course & Med Decision Making Pertinent Labs and Imaging studies reviewed. (See chart for details) Patient is an obese 40-year-old male with history of kidney stones that required lithotripsy and stent placement who presents today with right flank pain. His symptoms today are similar to prior kidney stones. Work-up today will consist of urinalysis as well as CT abdomen pelvis plain. Patient provided with IV medications for pain control. Patient provided with 6 morphine IV as well as 15 Toradol IV for pain control. On reevaluation, patient states he is more comfortable. Informed patient of findings. Shared decision making, patient will be discharged home with prescriptions for Flomax, ibuprofen as well as hydrocodone when NSAIDs are not sufficient for pain management. Patient is to call at his earliest convenience for an appointment with urology for reevaluation and follow-up treatment. Patient was given return precautions. He understands and is agreeable to discharge plan. Jeffry Disclaimer: Jeffry Disclaimer: This electronic medical record was generated, in whole or in part, using a voice recognition dictation system. Departure Departure Impression: Primary Impression: Bilateral nephrolithiasis Additional Impressions: Recurrent nephrolithiasis Right distal ureteral calculus Disposition: HOME / SELF CARE / HOMELESS Condition: IMPROVED Referrals: JR MICHEL MD (PCP) MAYANK PATHAK DO Patient Instructions: Diet for Kidney Stones, Kidney Stones, [id number] Additional Instructions: EMERGENCY DEPARTMENT GENERAL DISCHARGE INSTRUCTIONS Thank you for coming to [facility] Emergency Department (ED) today and trusting us with you care. We trust that you had a positive experience in our Emergency Department. If you wish to speak to the department management, you may call the director at . YOUR FOLLOW UP INSTRUCTIONS ARE FOLLOWS: 1. Follow up with your primary care doctor and urology specialist. If you do not have a primary doctor, please ask for a resource list of physicians or clinics that may be able to assist you with follow up care. 2. The emergency provider has interpreted your imaging studies, if any were ordered. The radiology [employer] specialist also reviewed them. If there is a change in the findings, you will be notified in 48 hours when at all possible. 3. If a lab test or culture has been done, your results will be reviewed and you will be notified if you need a change in treatment. 4. Follow instructions verbalized to you and refer to the printouts if needed. ADDITIONAL INSTRUCTIONS AND INFORMATION: 1. Your care today has been supervised by a physician who is specially trained in emergency care. Many problems require more than one evaluation for a complete diagnosis and treatment. We recommend that you schedule your follow up appointment as recommended to ensure complete treatment of you illness or injury. If you are unable to obtain follow up care and continue to have a prob sruthi, or if your condition worsens, we recommend that you return to the ED. 2. We are not able to safely determine your condition over the phone nor are we able to give sound medical advice over the phone. For these safety reasons, if you call for medical advice we will ask you to come to the ED for further evaluation. 3. If you have any questions regarding these discharge instructions please call the ED at . SAFETY INFORMATION: In the interest of safety, wellness, and injury prevention; we encourage you to wear your seat belt, if you smoke; quite smoking, and we encourage family to use a protective helmet for bicycling and other sporting events that present an increased risk for head injury. IF YOUR SYMPTOMS WORSEN OR NEW SYMPTOMS DEVELOP, OR YOU HAVE CONCERNS ABOUT YOUR CONDITION; OR IF YOUR CONDITION WORSENS WHILE YOU ARE WAITING FOR YOUR FOLLOW UP APPOINTMENT; EITHER CONTACT YOUR PRIMARY CARE DOCTOR, THE PHYSICIAN WHOSE NAME AND NUMBER YOU WERE GIVEN, OR RETURN TO THE ED IMMEDIATELY. Scripts Ibuprofen (IBUPROFEN) 800 Mg Tablet 800 MG PO PRN Q8HRS PRN for INFLAMMATION, #20 TAB Prov: MITESH MCFADDEN 05/23/21 Hydrocodone Bit/Acetaminophen (HYDROCODONE-APAP 5-325 ) 1 Tab Tablet 1 TAB PO PRN Q8HRS PRN for PAIN, #20 TAB 0 Refills Prov: MITESH MCFADDEN 05/23/21 Tamsulosin Hcl (FLOMAX) 0.4 Mg Cap.er.24h 1 CAP PO DAILY, #10 CAP 0 Refills Prov: MITESH MCFADDEN 05/23/21 MITESH MCFADDEN May 22, 2021 23:49
[2021-05-23] VITALS: BP 176/87
--- NOTE | 2021-05-23 00:03 | RAD ---
EXAMINATION: CT abdomen and pelvis without IV contrast. INDICATION:40 years, Male, pain. TECHNIQUE: Axial CT images of the abdomen and pelvis were obtained. Coronal and sagittal reformatted performed. COMPARISON: 04/02/2018. Exposure: One or more of the following individualized dose reduction techniques were utilized for thi s examination: 1. Automated exposure control 2. Adjustment of the mA and/or kV according to patient size 3. Use of iterative reconstruction technique. FINDINGS: LOWER CHEST: Unremarkable. ABDOMEN/PELVIS: Within the limitation of noncontrast exam, Mild right hydroureteronephrosis secondary to 5 mm obstructing calculus in the distal ureter. No left hydronephrosis. Punctate nonobstructing bilateral nephrolithiasis, the largest in the right kidney m easures 2.7 mm. Decompressed urinary bladder which limits evaluation. Punctate calcifications in the prostate. Liver, spleen, pancreas, gallbladder, biliary ducts and adrenal glands are unremarkable. No bowel obs truction. Normal appendix. No lymphadenopathy. Normal caliber abdominal aorta. No pneumoperitoneum or ascites. MUSCULOSKELETAL STRUCTURES: No acute osseous process. IMPRESSION: 1. Mild right hydroureteronephrosis secondary to 5 mm obstructing calculus in the distal ureter. 2. Punctate nonobstructing bilateral nephrolithiasis. Electronically signed by: Pop Zavala MD (05/23/2021 12:00 AM) [facility]
[2021-05-23] MEDS ORDERED: TAMSULOSIN 0.4 MG CAP.ER.24H. PO ONE (00:15)
[2021-05-23] MEDS ORDERED: IBUP-1060 PO (00:24)
[2021-05-23] MEDS ORDERED: HYDR-2761 PO (00:24)
[2021-05-23] MEDS ORDERED: TAMS0.4C97 PO (00:24)
== END 2021-05-23 00:32 | disposition home or self-care (01) ==
LOC: ER 23:01
DX: N13.2 Hydronephrosis with renal and ureteral calculous obstruction (principal); K21.9 Gastro-esophageal reflux disease without esophagitis; E66.01 Morbid (severe) obesity due to excess calories; Z68.29 Body mass index [BMI] 29.0-29.9, adult; Z87.442 Personal history of urinary calculi; Z88.8 Allergy status to other drugs, medicaments and biological substances
CPT/HCPCS: 74176; 81001; 96361; 96374; 96375; 99285; J1885; J2270; J7120; 99284-25